=== PATIENT | male | born 1965 | race Caucasian/White ===

== ENCOUNTER 2017-11-12 10:23 | Inpatient (IN) | payer OTHER ==
[2017-11-12] VITALS (10 sets, daily range): BP systolic 117–207; BP diastolic 69–130; PULSE 50–68; RESP 16–22; TEMP 97.8–98.4; O2SAT 97–100
[~2017-11-12] VITALS: Ht 175.3 cm; Wt 93.0 kg
--- NOTE | 2017-11-12 10:40 | PD ---
HPI Chief Complaint: Chest Pain Time Seen by Provider: 10:29 Travel History International Travel<30 days: No Contact w/Intl Traveler<30days: No Traveled to known affect area: No History of Present Illness HPI 52-year-old male complains of chest pain. Patient states the pain started about 45 minutes prior to arrival. Patient states the pain is sharp pains abdominal pain radiation to the neck and both arms. Patient denies any coughing congestion fever chills. Patient denies any history of CAD. Patient has history hypertension, rheumatoid arthritis. Patient denies history of diabetes or hyperlipidemia. Patient is non-smoker. Patient denies family history of heart disease. On a scale from 1-10 the pain is an 8. PFSH Social History Tobacco Use: No Allergies-Medications (Allergen,Severity, Reaction): Coded Allergies: No Known Allergies (Unverified , 11/12/17) Reported Meds & Prescriptions Reported Meds & Active Scripts Active Reported Enalapril (Enalapril Maleate) 20 Mg Tab 20 Mg PO DAILY Metoprolol Tartrate 100 Mg Tab 100 Mg PO DAILY Enbrel PF Inj (Etanercept) 50 mg/ml Syr 50 Mg SQ Q7D Review of Systems General / Constitutional: No: Fever Eyes: No: Visual changes HENT: No: Headaches Cardiovascular: Positive: Chest Pain or Discomfort Respiratory: No: Shortness of Breath Gastrointestinal: No: Abdominal Pain Genitourinary: No: Dysuria Musculoskeletal: No: Pain Skin: No Rash Neurologic: No: Weakness Psychiatric: No: Depression Endocrine: No: Polydipsia Hematologic/Lymphatic: No: Easy Bruising Physical Exam Narrative GENERAL: Well-nourished, well-developed patient. SKIN: Focused skin assessment warm/dry. HEAD: Normocephalic. EYES: No scleral icterus. No injection or drainage. NECK: Supple, trachea midline. No JVD or lymphadenopathy. CARDIOVASCULAR: Regular rate and rhythm without murmurs, gallops, or rubs. RESPIRATORY: Breath sounds equal bilaterally. No accessory muscle use. GASTROINTESTINAL: Abdomen soft, non-tender, nondistended. MUSCULOSKELETAL: No cyanosis, or edema. BACK: Nontender without obvious deformity. No CVA tenderness. Neurologic exam normal. Data Data Last Documented VS Vital Signs Date Time Temp Pulse Resp B/P (MAP) Pulse Ox O2 Delivery O2 Flow Rate FiO2 11/12/17 11:50 57 203/129 4/2/18 11:40 18 98 Room Air 11/12/17 10:25 98.4 Orders Orders Aspirin (Aspirin) (11/12/17 10:45) Morphine Inj (Morphine Inj) (11/12/17 10:45) Ondansetron Inj (Zofran Inj) (11/12/17 10:45) Sodium Chlor 0.9% 1000 Ml Inj (Ns 1000 M (11/12/17 10:45) Electrocardiogram (11/12/17 10:37) Complete Blood Count With Diff (11/12/17 10:37) Comprehensive Metabolic Panel (11/12/17 10:37) Creatine Kinase (Cpk) (11/12/17 10:37) Troponin I (11/12/17 10:37) Prothrombin Time / Inr (Pt) (11/12/17 10:37) Act Partial Throm Time (Ptt) (11/12/17 10:37) Chest, Single Ap (11/12/17 10:37) Iv Access Insert/Monitor (11/12/17 10:37) Ecg Monitoring (11/12/17 10:37) Oximetry (11/12/17 10:37) Morphine Inj (Morphine Inj) (11/12/17 11:15) Cta Thor Abd Aorta W Iv C W3d (11/12/17 ) Iohexol 350 Inj (Omnipaque 350 Inj) (11/12/17 11:41) Nitroglycerin-D5w 50 Mg/250 Ml (Nitrogly (11/12/17 11:45) Nitroglycerin-D5w 50 Mg/250 Ml (Nitrogly (11/12/17 11:45) Admit Order (Ed Use Only) (11/12/17 11:55) Labs Laboratory Tests Test 11/12/17 10:40 White Blood Count 8.5 TH/MM3 Red Blood Count 4.54 MIL/MM3 Hemoglobin 14.1 GM/DL Hematocrit 41.9 % Mean Corpuscular Volume 92.2 FL Mean Corpuscular Hemoglobin 31.1 PG Mean Corpuscular Hemoglobin Concent 33.7 % Red Cell Distribution Width 12.3 % Platelet Count 339 TH/MM3 Mean Platelet Volume 7.8 FL Neutrophils (%) (Auto) 53.9 % Lymphocytes (%) (Auto) 31.0 % Monocytes (%) (Auto) 12.2 % Eosinophils (%) (Auto) 2.1 % Basophils (%) (Auto) 0.8 % Neutrophils # (Auto) 4.6 TH/MM3 Lymphocytes # (Auto) 2.6 TH/MM3 Monocytes # (Auto) 1.0 TH/MM3 Eosinophils # (Auto) 0.2 TH/MM3 Basophils # (Auto) 0.1 TH/MM3 CBC Comment DIFF FINAL Differential Comment Prothrombin Time 9.9 SEC Prothromb Time International Ratio 1.0 RATIO Activated Partial Thromboplast Time 23.3 SEC Blood Urea Nitrogen 27 MG/DL Creatinine 1.50 MG/DL Random Glucose 110 MG/DL Total Protein 8.7 GM/DL Albumin 4.3 GM/DL Calcium Level 9.6 MG/DL Alkaline Phosphatase 80 U/L Aspartate Amino Transf (AST/SGOT) 28 U/L Alanine Aminotransferase (ALT/SGPT) 44 U/L Total Bilirubin 1.0 MG/DL Sodium Level 135 MEQ/L Potassium Level 4.5 MEQ/L Chloride Level 104 MEQ/L Carbon Dioxide Level 22.5 MEQ/L Anion Gap 9 MEQ/L Estimat Glomerular Filtration Rate 50 ML/MIN Total Creatine Kinase 106 U/L Troponin I 0.10 NG/ML [facility] Medical Decision Making Medical Screen Exam Complete: Yes Emergency Medical Condition: Yes Interpretation(s) Chest x-ray shows no acute consolidation. EKG shows sinus rhythm with T-wave inversion in 3 aVF and anterior leads. CBC within normal limits. BUN 27. Creatinine 1.50. GFR 50. Troponin 0.10. Differential Diagnosis Differential diagnosis including musculoskeletal, angina, TN, PE, pneumothorax. Narrative Course 52-year-old male with chest pain. History of rheumatoid arthritis and hypertension. EKG shows inverted T-wave in 3, aVF, V1 V2 and V3. No obvious ST elevation or depression. No previous EKG for comparison. Aspirin 325 mg p.o. given. Morphine 2 mg IV given. Repeated morphine 2 mg IV. Nitroglycerin drip for blood pressure control. Diagnosis Primary Impression: NSTEMI (non-ST elevated myocardial infarction) Additional Impression: Renal insufficiency Admitting Information Admitting Physician Requests: Admit Isaac Mcnally MD Nov 12, 2017 10:40
[2017-11-12] MEDS ORDERED: MORPHINE SULFATE 2 MG/ML SYRINGE IV PUSH ONE ×3 (10:45→12:30)
[2017-11-12] MEDS ORDERED: ONDANSETRON HCL 4 MG/2 ML VIAL IV PUSH ONE (10:45)
[2017-11-12] MEDS ORDERED: SODIUM CHLOR 0.9% 1000 ML INJ 1,000 ML IV SCH ×2 (10:45→17:02)
[2017-11-12] MEDS ORDERED: ASPIRIN 325 MG TAB PO ONE (10:45)
[2017-11-12 10:53] LABS: AUTOMATED NEUTROPHIL # 4.6 TH/MM3 (1.8-7.7); BASOPHIL # 0.1 TH/MM3 (0-0.2); BASOPHIL % 0.8 % (0.0-2.0); EOSINOPHIL # 0.2 TH/MM3 (0-0.4); EOSINOPHIL % 2.1 % (0.0-4.0); HEMATOCRIT 41.9 % (39.0-51.0); HEMOGLOBIN 14.1 GM/DL (13.0-17.0); LYMPHOCYTE # 2.6 TH/MM3 (1.0-4.8); MEAN CELL VOLUME 92.2 FL (80.0-100.0); MEAN CORPUSCULAR HEMOGLOBIN 31.1 PG (27.0-34.0); MEAN CORPUSCULAR HGB CONC 33.7 % (32.0-36.0); MEAN PLATELET VOLUME 7.8 FL (7.0-11.0); MONO % 12.2 % (0.0-8.0); NEUT % 53.9 % (16.0-70.0); PLATELET COUNT 339 TH/MM3 (150-450); RED BLOOD COUNT 4.54 MIL/MM3 (4.50-5.90); RED CELL DISTRIBUTION WIDTH 12.3 % (11.6-17.2); WHITE BLOOD COUNT 8.5 TH/MM3 (4.0-11.0)
[2017-11-12] MEDS ORDERED: ENBR50IN2 SQ (10:54)
[2017-11-12] MEDS ORDERED: ENAL20TA PO (10:54)
[2017-11-12] MEDS ORDERED: METO100T PO (10:54)
[2017-11-12 11:10] LABS: CHLORIDE 104 MEQ/L (98-107); SODIUM (NA) 135 MEQ/L (136-145)
[2017-11-12 11:14] LABS: CALCIUM 9.6 MG/DL (8.5-10.1)
[2017-11-12 11:15] LABS: ALBUMIN 4.3 GM/DL (3.4-5.0); BICARBONATE 22.5 MEQ/L (21.0-32.0); BLOOD UREA NITROGEN 27 MG/DL (7-18); GLUCOSE,RANDOM 110 MG/DL (74-106)
[2017-11-12 11:18] LABS: ALT (GPT) 44 U/L (12-78); AST (GOT) 28 U/L (15-37); GLOMERULAR FILTRATION RATE 50 ML/MIN (>89)
[2017-11-12 11:20] LABS: TOTAL PROTEIN 8.7 GM/DL (6.4-8.2)
[2017-11-12 11:21] LABS: ALKALINE PHOSPHATASE 80 U/L (45-117)
[2017-11-12 11:32] LABS: PROTHROMBIN TIME - PATIENT 9.9 SEC (9.8-11.6)
--- NOTE | 2017-11-12 11:39 | RADRPT ---
EXAM DATE/TIME: 11/12/2017 11:14 [facility] COMPARISON: No previous studies available for comparison. INDICATIONS : Chest pain with numbness down right arm MEDICAL HISTORY : Hypertension. SURGICAL HISTORY : None. ENCOUNTER: Initial ACUITY: 1 day PAIN SCORE: 6/10 LOCATION: chest FINDINGS: A single view of the chest demonstrates the lungs to be symmetrically aerated without evidence of mas s, infiltrate or effusion. No evidence of pneumothorax. The cardiomediastinal contours are unremarka ble. Osseous structures are intact. CONCLUSION: The lungs are clear. Edvin Lomeli MD on November 12, 2017 at 11:37 Board Certified Radiologist. This report was verified electronically.
[2017-11-12] MEDS ORDERED: IOHEXOL 350 MG/ML 10 ML VIAL (for RAD DIAG) IVCONTRAST ONE (11:41)
[2017-11-12] MEDS ORDERED: NITROGLYCERIN-D5W 50 MG/250 ML 250 ML ONE (11:45)
[2017-11-12] MEDS: NITROGLYCERIN-D5W 50 MG/250 ML 250 ML IV PRN (11:50)
[2017-11-12] MEDS ORDERED: HEPARIN SODIUM - IV 10,000 UNITS/10 ML VIAL IV ONE (12:00)
[2017-11-12] MEDS: HEPARIN-D5W 25,000 U/250 ML 250 ML IV SCH (12:18)
--- NOTE | 2017-11-12 12:31 | RADRPT ---
EXAM DATE/TIME: 11/12/2017 11:26 [facility] COMPARISON: No previous studies available for comparison. INDICATIONS : Mid chest pain radiating up neck and down bilateral upper extremities. IV CONTRAST: 85 cc Omnipaque 350 (iohexol) IV RADIATION DOSE: 21.29 CTDIvol (mGy) MEDICAL HISTORY : Hypertension. Carcinoma, testicular. SURGICAL HISTORY : Left orchiectomy. ENCOUNTER: Initial ACUITY: 1 day PAIN SCALE: 9/10 LOCATION: chest TECHNIQUE: Volumetric scanning was performed using a multi-row detector CT scanner. The data was post processed with a variety of visualization algorithms including full volume maximum intensity projection, multi -planar sliding thin slab reformation, curved planar reformation, and surface rendering techniques. Using automated exposure control and adjustment of the mA and/or kV according to patient size, radiat ion dose was kept as low as reasonably achievable to obtain optimal diagnostic quality images. DICOM format image data is available electronically for review and comparison. FINDINGS: Thoracic aorta: There is a tricuspid aortic valve. The aortic root is normal in caliber measuring approximately 2.9 c m. The tubular portion of the ascending aorta is normal in size as well there is normal anatomic bran lorie of the great vessels from the arch. The arch and descending thoracic aorta are normal in calibe r. There is no evidence of dissection. Abdominal aorta: The celiac and SMA are widely patent. There are accessory renal arteries bilaterally. The renal arter ies are widely patent. The infrarenal aorta is normal in caliber. The YEHUDA is not identified. Pelvis: The common iliac, internal iliac and external iliac circulation demonstrates mild atherosclerotic july quing. No significant stenosis is identified. CT source data: There is moderate atherosclerotic plaquing involving the left anterior descending coronary artery. Th ere is no pericardial effusion. The heart is normal in size. The pulmonary parenchyma is clear area a nd the solid organs of the abdomen are grossly intact by arterial phase imaging. There is no retroper itoneal adenopathy. No free air or free fluid is identified. The visualized bony structures are gross ly intact. CONCLUSION: 1. No evidence of aortic dissection or aneurysmal dilation. 2. No pulmonary embolus identified. 3. Moderate atherosclerotic plaquing in the coronary arteries. 4. The solid organs of the abdomen are grossly intact. Caleb Montes MD on November 12, 2017 at 12:18 Board Certified Radiologist. This report was verified electronically.
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
[2017-11-12] MEDS ORDERED: MORPHINE SULFATE 4 MG/ML INJ IV PUSH PRN ×3 (17:00)
[2017-11-12] MEDS ORDERED: NALOXONE HCL 0.4 MG/ML AMP IV PUSH PRN (17:15)
[2017-11-12] MEDS ORDERED: ONDANSETRON HCL 4 MG/2 ML VIAL IVP PRN (17:15)
[2017-11-12] MEDS ORDERED: MAGNESIUM HYDROXIDE SUSP 30 ML CUP PO PRN (17:15)
[2017-11-12] MEDS ORDERED: ACETAMINOPHEN 325 MG TAB PO PRN (17:15)
[2017-11-12] MEDS ORDERED: SODIUM CHLORIDE 0.9% FLUSH 10 ML FLUSH IV FLUSH PRN (17:15)
[2017-11-12] MEDS: SODIUM CHLOR 0.9% 1000 ML INJ 1,000 ML IV SCH ×2 (17:45→20:30)
[2017-11-12] MEDS: SODIUM CHLORIDE 0.9% FLUSH 10 ML FLUSH IV FLUSH SCH (20:29)
[2017-11-12] MEDS: MORPHINE SULFATE 4 MG/ML INJ IV PUSH PRN (20:31)
[2017-11-12] MEDS: DOCUSATE SODIUM 50 MG/SENNA 8.6 MG TAB PO SCH (21:00)
[2017-11-12] MEDS: METOPROLOL TARTRATE 100 MG TAB PO SCH (21:00)
[2017-11-13] VITALS (25 sets, daily range): BP systolic 110–145; BP diastolic 68–90; PULSE 52–76; RESP 16–20; TEMP 97.6–98.9; O2SAT 94–98
[2017-11-13] MEDS: MORPHINE SULFATE 4 MG/ML INJ IV PUSH PRN ×2 (00:15→05:45)
[2017-11-13 01:58] LABS: ALBUMIN 3.4 GM/DL (3.4-5.0); ALT (GPT) 39 U/L (12-78); AST (GOT) 115 U/L (15-37); BICARBONATE 21.4 MEQ/L (21.0-32.0); BLOOD UREA NITROGEN 21 MG/DL (7-18); CALCIUM 8.2 MG/DL (8.5-10.1); CHLORIDE 105 MEQ/L (98-107); CHOLESTEROL 247 MG/DL (120-200); CREATININE 1.32 MG/DL (0.60-1.30); GLOMERULAR FILTRATION RATE 57 ML/MIN (>89); GLUCOSE,RANDOM 102 MG/DL (74-106); SODIUM (NA) 137 MEQ/L (136-145)
[2017-11-13 02:02] LABS: ALKALINE PHOSPHATASE 65 U/L (45-117); CHOLESTEROL/ HDL RATIO 7.94 RATIO; HDL CHOLESTEROL 31.1 MG/DL (40.0-60.0); TOTAL BILIRUBIN ADULT 0.8 MG/DL (0.2-1.0); TRIGLYCERIDES 625 MG/DL (42-150)
--- NOTE | 2017-11-13 06:48 | PD.CARD.PN ---
Subjective Subjective Remarks no significant change in symptoms. Troponin rise through the night. Objective Medications Current Medications Medications (Trade) Dose Ordered Sig/[place] Route Start Time Stop Time Status Last Admin Nitroglycerin/ Dextrose 250 ml @ 1.5 mls/hr TITRATE PRN IV 11/12/17 11:45 11/12/17 11:50 Heparin Sodium/ Dextrose 250 ml @ 10 mls/hr TITRATE IV 11/12/17 12:00 11/12/17 12:18 (Morphine Inj) 2 mg Q3H PRN IV PUSH 11/12/17 17:00 11/12/17 18:52 (NS Flush) 2 ml UNSCH PRN IV FLUSH 11/12/17 17:15 (NS Flush) 2 ml BID IV FLUSH 11/12/17 21:00 11/12/17 20:29 (Tylenol) 650 mg Q4H PRN PO 11/12/17 17:15 (Zofran Inj) 4 mg Q6H PRN IVP 11/12/17 17:15 (Narcan Inj) 0.4 mg UNSCH PRN IV PUSH 11/12/17 17:15 (Jenny-Colace) 1 tab BID PO 11/12/17 21:00 (Milk Of Magnesia Liq) 30 ml Q12H PRN PO 11/12/17 17:15 (Vasotec) 20 mg DAILY PO 11/13/17 09:00 Patient Own Medication PT OWN MED: Etanerc... Q7D SQ 11/13/17 09:00 Future Hold (Aspirin) 325 mg DAILY PO 11/13/17 09:00 (Lopressor) 100 mg BID PO 11/12/17 21:00 (Morphine Inj) 5 mg Q3H PRN IV PUSH 11/12/17 20:00 11/13/17 05:45 Sodium Chloride 1,000 ml @ 125 mls/hr Q8H IV 11/12/17 17:45 11/12/17 20:30 Vital Signs / I&O Vital Signs Date Time Temp Pulse Resp B/P (MAP) Pulse Ox O2 Delivery O2 Flow Rate FiO2 11/13/17 04:00 97.7 52 18 142/90 (107) 98 11/13/17 02:30 58 112/64 11/13/17 02:22 98 21 11/13/17 00:00 98.0 58 18 110/68 (82) 97 11/12/17 20:00 97.8 68 18 117/79 (92) 98 11/12/17 20:00 97.8 68 18 117/79 (92) 98 11/12/17 20:00 65 117/79 11/12/17 19:30 18 11/12/17 18:53 97.8 68 20 130/79 (96) 11/12/17 15:00 11/12/17 14:25 50 16 140/76 (97) 99 Nasal Cannula 2.00 11/12/17 14:03 56 16 132/72 (92) 97 Nasal Cannula 2.00 11/12/17 14:00 50 11/12/17 13:54 51 16 141/69 (93) 98 Nasal Cannula 2.00 11/12/17 13:44 56 16 148/88 (108) 99 Nasal Cannula 2.00 11/12/17 12:45 14 11/12/17 12:00 57 18 157/105 (122) 100 Nasal Cannula 2.00 11/12/17 12:00 100 Nasal Cannula 2.00 11/12/17 11:50 57 203/129 11/12/17 11:40 61 18 203/129 (153) 98 Room Air 11/12/17 11:20 14 11/12/17 10:45 97 Room Air 11/12/17 10:45 58 11/12/17 10:45 14 11/12/17 10:25 98.4 58 22 207/130 (155) 97 I/O 11/12/17 11/12/17 11/12/17 11/13/17 11/13/17 11/13/17 07:00 15:00 23:00 07:00 15:00 23:00 Intake Total 1000 ml 0 ml Output Total 1650 ml Balance 1000 ml -1650 ml Intake Oral 0 ml 0 ml IV Total 1000 ml Output Urine Total 1650 ml # Bowel Movements 0 Physical Exam Lungs clear RRR no murmur Laboratory Laboratory Tests Test 11/12/17 10:40 11/12/17 19:59 11/13/17 01:30 White Blood Count 8.5 TH/MM3 Red Blood Count 4.54 MIL/MM3 Hemoglobin 14.1 GM/DL Hematocrit 41.9 % Mean Corpuscular Volume 92.2 FL Mean Corpuscular Hemoglobin 31.1 PG Mean Corpuscular Hemoglobin Concent 33.7 % Red Cell Distribution Width 12.3 % Platelet Count 339 TH/MM3 Mean Platelet Volume 7.8 FL Neutrophils (%) (Auto) 53.9 % Lymphocytes (%) (Auto) 31.0 % Monocytes (%) (Auto) 12.2 % Eosinophils (%) (Auto) 2.1 % Basophils (%) (Auto) 0.8 % Neutrophils # (Auto) 4.6 TH/MM3 Lymphocytes # (Auto) 2.6 TH/MM3 Monocytes # (Auto) 1.0 TH/MM3 Eosinophils # (Auto) 0.2 TH/MM3 Basophils # (Auto) 0.1 TH/MM3 CBC Comment DIFF FINAL Differential Comment Prothrombin Time 9.9 SEC Prothromb Time International Ratio 1.0 RATIO Activated Partial Thromboplast Time 23.3 SEC 26.0 SEC 26.4 SEC Blood Urea Nitrogen 27 MG/DL 21 MG/DL Creatinine 1.50 MG/DL 1.32 MG/DL Random Glucose 110 MG/DL 102 MG/DL Total Protein 8.7 GM/DL 7.0 GM/DL Albumin 4.3 GM/DL 3.4 GM/DL Calcium Level 9.6 MG/DL 8.2 MG/DL Alkaline Phosphatase 80 U/L 65 U/L Aspartate Amino Transf (AST/SGOT) 28 U/L 115 U/L Alanine Aminotransferase (ALT/SGPT) 44 U/L 39 U/L Total Bilirubin 1.0 MG/DL 0.8 MG/DL Sodium Level 135 MEQ/L 137 MEQ/L Potassium Level 4.5 MEQ/L 3.9 MEQ/L Chloride Level 104 MEQ/L 105 MEQ/L Carbon Dioxide Level 22.5 MEQ/L 21.4 MEQ/L Anion Gap 9 MEQ/L 11 MEQ/L Estimat Glomerular Filtration Rate 50 ML/MIN 57 ML/MIN Total Creatine Kinase 106 U/L Troponin I 0.10 NG/ML 11.00 NG/ML 20.70 NG/ML Triglycerides Level 625 MG/DL Cholesterol Level 247 MG/DL LDL Cholesterol MG/DL HDL Cholesterol 31.1 MG/DL Cholesterol/HDL Ratio 7.94 RATIO Imaging Last 24 hours Impressions Chest X-Ray 11/12/17 1037 Signed Impressions: Service Date/Time: Sunday, November 12, 2017 11:14 - CONCLUSION: The lungs are clear. Edvin Lomeli MD Assessment and Plan Assessment and Plan NSTEMI will plan cath at 11.00. Discussed with patient Golden Flynn MD Nov 13, 2017 06:48
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
[2017-11-13] MEDS ORDERED: HYDROmorphone HCL PF 2 MG/ML VIAL IV PUSH ONE (08:00)
[2017-11-13] MEDS ORDERED: HYDROmorphone HCL PF 2 MG/ML VIAL IV PUSH PRN (08:00)
--- NOTE | 2017-11-13 08:15 | HHI.PR ---
Subjective Remarks still with chest pain Objective Vitals heart reg lung cta abd s/nt ext no edema Vital Signs Date Time Temp Pulse Resp B/P (MAP) Pulse Ox O2 Delivery O2 Flow Rate FiO2 11/13/17 08:07 71 18 141/90 (107) 11/13/17 04:00 97.7 52 18 142/90 (107) 98 11/13/17 04:00 60 147/96 11/13/17 02:30 58 112/64 11/13/17 02:22 98 21 11/13/17 00:00 98.0 58 18 110/68 (82) 97 11/12/17 20:00 97.8 68 18 117/79 (92) 98 11/12/17 20:00 97.8 68 18 117/79 (92) 98 11/12/17 20:00 65 117/79 11/12/17 19:30 18 11/12/17 18:53 97.8 68 20 130/79 (96) 11/12/17 15:00 11/12/17 14:25 50 16 140/76 (97) 99 Nasal Cannula 2.00 11/12/17 14:03 56 16 132/72 (92) 97 Nasal Cannula 2.00 11/12/17 14:00 50 11/12/17 13:54 51 16 141/69 (93) 98 Nasal Cannula 2.00 11/12/17 13:44 56 16 148/88 (108) 99 Nasal Cannula 2.00 11/12/17 12:45 14 11/12/17 12:00 57 18 157/105 (122) 100 Nasal Cannula 2.00 11/12/17 12:00 100 Nasal Cannula 2.00 11/12/17 11:50 57 203/129 11/12/17 11:40 61 18 203/129 (153) 98 Room Air 11/12/17 11:20 14 11/12/17 10:45 97 Room Air 11/12/17 10:45 58 11/12/17 10:45 14 11/12/17 10:25 98.4 58 22 207/130 (155) 97 Result Diagram: 11/12/17 1040 11/13/17 0130 Imaging Last Impressions Chest X-Ray 11/12/17 1037 Signed Impressions: Service Date/Time: Sunday, November 12, 2017 11:14 - CONCLUSION: The lungs are clear. Edvin Lomeli MD Aorta CTA 11/12/17 0000 Signed Impressions: Service Date/Time: Sunday, November 12, 2017 11:26 - CONCLUSION: 1. No evidence of aortic dissection or aneurysmal dilation. 2. No pulmonary embolus identified. 3. Moderate atherosclerotic plaquing in the coronary arteries. 4. The solid organs of the abdomen are grossly intact. Caleb Montes MD A/P Problem List: (1) NSTEMI (non-ST elevated myocardial infarction) ICD Codes: I21.4 - Non-ST elevation (NSTEMI) myocardial infarction Status: Acute Plan: Chest pain NSTEMI cont heparin gtt cont ntg gtt stop morphine. try dilaudid for pain add statin cont bb/flory/asa going for [facility] today at 11am Hypertensive Urgency BP 207/130 apon arrival cont ntg. flory. bb. Chronic kidney disease stage III In review of outpatient records GFR ranged from 28- 63 monitor avoid nephrotoxic agents cont ivf around [facility] Rheumatoid Arthritis continue patient's home Enbrel (2) Hypertensive urgency ICD Codes: I16.0 - Hypertensive urgency Status: Acute (3) Rheumatoid arthritis ICD Codes: M06.9 - Rheumatoid arthritis, unspecified Status: Chronic Ethan Babb MD Nov 13, 2017 08:15
[2017-11-13] MEDS: DOCUSATE SODIUM 50 MG/SENNA 8.6 MG TAB PO SCH ×2 (09:00→20:38)
[2017-11-13] MEDS ORDERED: METOPROLOL TARTRATE 100 MG TAB PO SCH (09:00)
[2017-11-13] MEDS ORDERED: ENALAPRIL MALEATE 10 MG TAB PO SCH (09:00)
[2017-11-13] MEDS ORDERED: ASPIRIN 325 MG TAB PO SCH (09:00)
[2017-11-13] MEDS ORDERED: ETANERCEPT 50 MG SQ SCH (09:00)
[2017-11-13] MEDS: SODIUM CHLORIDE 0.9% FLUSH 10 ML FLUSH IV FLUSH SCH ×3 (09:00→20:40)
[2017-11-13] MEDS: METOPROLOL TARTRATE 100 MG TAB PO SCH ×2 (09:06→20:38)
[2017-11-13] MEDS: HEPARIN-D5W 25,000 U/250 ML 250 ML IV SCH ×2 (09:20→09:21)
[2017-11-13] MEDS ORDERED: HEPARIN-NS/PF FLUSH BAG 2,000 ML IV FLUSH ONE (10:27)
[2017-11-13] MEDS ORDERED: MIDAZOLAM HCL 2 MG/2 ML VIAL ONE (10:42)
[2017-11-13] MEDS ORDERED: LIDOCAINE HCL 1% PF 30 ML VIAL ONE (10:51)
[2017-11-13] MEDS ORDERED: HEPARIN SODIUM - IV 10,000 UNITS/10 ML VIAL ONE (11:15)
--- NOTE | 2017-11-13 11:43 | CATHPROC ---
[employer] HIS Report Study Information Study Number Admission Scheduled Start Study Start [id number] Nov 12 2017 11:57AM 11/13/2017 Nov 13 2017 10:27AM [place] [facility] Cardiac Catheterization Admit Source Facility Department Other [facility] - [facility] Physician and Clinical Staff Initial Golden Downing Senior Policy Advisor Demario Fernández,RN Senior Policy Advisor Demario Patterson,RN Other cathlab, cathlab Recorder David Rice RCIS(BS) Scrub Pierre AbdallaRT(R) Procedures Performed Procedure Location (Site) Vessel Name Coronary Angiograms LCA Left Coronary Coronary Angiograms RCA Right Coronary L Heart Cath Wire insertion Fem Art (right) Femoral Art Equipment Time Lithoplate Maker Description Size Mfg Part Number Used/Scraped [id number] 11:17 [employer] WIRE, [place] PROWATER 180CM 180CM Used *[id number] TRANSDUCER, TRUWAVE [id number] 10:41 SolarNOW CHOU * Used W/STOCKCOCK *[id number] 11:26 mobiDEOS WIRE, CHOICE PT 182CM 182CM Used *[id number] [id number] *[id number] *[id number] *[id number] *[id number] [id number] *[id number] [id number] *[id number] 10:41 Verimatrix INDUSTRIES PACK, CCL CUSTOM * Used *[id number] 10:41 Verimatrix PACER PEN, SKIN DUAL W/ RULER * Used *[id number] 11:15 ITC 30 SURAJ INDEFLATOR Used *[id number] 10:41 ITC SHEATH, FR6.5 PRELUDE 11CM FR 6.5 038ACT Used *[id number] 10:41 ITC WIRE, 3MMJ .035 180CM 180CM Used *[id number] 10:41 NAMIC MANIFOLD, 4 PORT * Used *[id number] 10:41 NYCOMED OMNIPAQUE, 350 MG, 100ML 100ML [id number] Used [id number] 10:41 HAMEED MEDICAL BLANKET,WARM AIR CCL * Used *[id number] Equipment Model, Serial, Lot Number and Expiration Data Description Model Number Serial Number Lot Number Expiration Date WIRE, CHOICE PT 182CM [id number] 06-18-2019 History: Current Medications Medication Dosage/Unit Route Frequency Last Date/Time Taken Statins (any) Beta Carole ASA History: Allergies Allergy Reaction No Known Allergies History: Risk Factors Family History of Hypertension Dyslipidemia Previous DC Previous Heart Failure Premature CAD Yes Yes Yes No No Prior Valve Prior PCI Prior CABG Surgery No No No Cerebrovascular Peripheral Artery Chronic Lung On Dialysis Diabetes Disease Disease Disease No No No No No History: Symptoms/Diagnosis Selection Items Chest pain History: Stress Tests Stress or Imaging Studies Performed No History: Other Disease Selection Items HTN History: Other Current Smoker No Labs Hgb (g/dl) Hct (%) WBC (l/cumm) Platelets (thousands) 11.60-17.00 35.00-51.00 4.00-11.00 150.00-450.00 14.1 41.9 8.5 339 Glucose (mg/dl) BUN (mg/dl) Creatinine (mg/dl) BUN:Creatinine (1:x) 74.00-106.00 7.00-18.00 0.50-1.30 10.00-20.00 102 21 1.3 16.2 Na (meq/l) K (meq/l) 136.00-145.00 3.50-5.10 137 3.9 INR (PTT:PT) 0.90-1.10 1 Troponin I (ng/ml) CPK (u/l) CPK-MB (ng/ML) 0.02-0.05 26.00-308.00 0.50-3.60 20.7 106 Not Drawn Medication Medication Total Dose (Bolus/Oral) Medication Total Dosage/Unit 1% XYLOCAINE 20 mL HEPARIN 6600 units VERSED 2 mg Medications (Bolus/Oral) Medication Time Given Dosage/Unit Administered By Reason VERSED 11/13/2017 10:59:28 AM 2 mg Demario Frenández 2 mg VERSED given in lab by Demario Fernández RN in Left Antecubital via Peripheral IV. Ordered by Golden Gallegos ams. 1% XYLOCAINE 11/13/2017 11:04:42 AM 20 mL Golden Flynn 20 mL 1% XYLOCAINE given in lab by Golden Flynn in Right Groin via Subcutaneous. HEPARIN 11/13/2017 11:17:56 AM 6600 units Demario Patterson 6600 units HEPARIN given in lab by Demario Patterson RN in Left Antecubital via Peripheral IV. Ordered by Golden Flynn. Medication (Drip) Medication Time Given Dosage/Unit Concentration/Unit Diluent (ml) Solutio n IV Solutions 11/13/2017 10:49:00 AM 0 mL (IV) NaCl .9 Patient arrived on IV Solutions in Left Antecubital via Peripheral IV. Pump/Drip Flow = 125 ml/hr usi ng NaCl .9. NITROGLYCERIN DRIP 11/13/2017 10:48:24 AM 30 mcg/min 50 mg 250 D5W Patient arrived on 30 mcg/min NITROGLYCERIN DRIP in Left Antecubital via Peripheral IV. Pump/Drip Bora w = 9 ml/hr using D5W with a concentration of 50 mg in 250 ml. Initial Case Assessment Cardiovascular HR Rhythm NIBP Chest Pain 63 NSR 139/79 2 Edema Present Skin color Skin None Normal Warm Dry Circulatory - Right Pulses Dorsalis Pedis Femoral 3 1 Scale (0,1,2,3,4,d) Circulatory - Left Pulses Dorsalis Pedis Femoral 3 1 Scale (0,1,2,3,4,d) Neurological State Oriented to time-place- Alert Moves all extremities person Respiration - General Respiration Rate SpO2 (%) (B/min) 15 96 Final Case Assessment Cardiovascular HR Rhythm NIBP Chest Pain 73 NSR 125/74 2 Edema Present Skin color Skin None Normal Warm Dry Circulatory - Right Pulses Dorsalis Pedis Femoral 3 1 Scale (0,1,2,3,4,d) Circulatory - Left Pulses Dorsalis Pedis Femoral 3 1 Scale (0,1,2,3,4,d) Neurological State Oriented to time-place- Alert Moves all extremities person Respiration - General Respiration Rate SpO2 (%) (B/min) 16 96 Chronological Log Time Study Chronological Log 10:39:25 Patient arrived via Bed. Heparin drip DCed per MD. 10:39:26 Patient Name, D.O.B, / Armband Verified By R.N. 10:39:26 Consent signed by the physician and the patient and verified by the [employer] [facility] [facility] staff. 10:39:26 Pre-op and post- op instructions given; patient acknowledges understanding of instructions. 10:39:27 Verbal Stimulation=2 Physical Stimulation=2 Airway=2 Respiration=2 TOTAL=8. (0=absent, 1=li mited, 2=present) 10:39:28 Presedation assessment performed by [employer] [facility] RN. 10:39:29 Immediate Presedation assesment performed by physician. 10:39:29 Patient has been NPO for More than 6Hrs. 10:39:30 Heparin gtt discontinued prior to arrival 10:39:30 Skin Breakdown- none per patient 10:39:31 Patient Warmer Placed on the Table. 10:39:33 Bharat Prominences Protected 10:39:33 A # 20 IV was noted in the Antecubital (left). Grade = 0 10:39:34 History and physical on the chart or being dictated. 10:40:00 A # 20 IV was noted in the Forearm (right). Grade = 0 Assessment: Initial Case, HR=63 BPM, Rhythm=NSR, FGBG=685/79 mmhg, Chest Pain=2, Edema=None, Color=Normal, Skin = Warm, Dry Right Pulses: Amrik Ped=3, Femoral=1 10:43:42 Left Pulses: Amrik Ped=3, Femoral=1 Neurological: State=Alert, Ox3, WEST Respiration: Resp=15 B/min, SpO2=96 % Vitals capture started with the following parameters, Patient=Adult, Interval=5 min, Initial Pr tprozd=078 mmHg, 10:44:26 Deflation Rate=5 mmHg, Cuff placed on Right Arm 10:45:35 HR=64 bpm, FGDJ=881/79 mmhg, SpO2=99.0 %, Resp=11 B/min, Pain=2, Henry=10, Treadwell=2 Patient arrived on 30 mcg/min NITROGLYCERIN DRIP in Left Antecubital via Peripheral IV. Pump/Dr ip Flow = 9 ml/hr 10:48:24 using D5W with a concentration of 50 mg in 250 ml. 10:49:00 Patient arrived on IV Solutions in Left Antecubital via Peripheral IV. Pump/Drip Flow = 125 ml/hr using NaCl .9. 10:50:09 HR=62 bpm, MHFX=369/74 mmhg, SpO2=95.0 %, Resp=9 B/min, Pain=2, Henry=10, Treadwell=2 10:53:24 Bilateral groins prepped with 2% chlorhexidine, and draped after a 3 minute waiting time. 10:53:56 Reference ECG taken 10:55:19 paged 10:55:35 HR=62 bpm, HEPQ=141/78 mmhg, SpO2=96.0 %, Resp=10 B/min, Pain=2, Henry=10, Treadwell=2 10:57:39 Pressure channel 1 zeroed. 10:58:28 MD arrived. 10:58:35 Contrast Scanned 10:58:36 Immediate Presedation assesment performed by physician. 10:59:28 2 mg VERSED given in lab by Demario Fernández RN in Left Antecubital via Peripheral IV. Ordere d by Golden Flynn. 11:00:07 HR=63 bpm, RJNW=630/72 mmhg, SpO2=94.0 %, Resp=11 B/min, Pain=2, Henry=10, Treadwell=2 Time Out. Correct patient, correct procedure, correct physician, power injector not loaded with contrast with surgical 11:04:07 team present. Time Out Concurred by MD and individual staff in procedure. 11:04:36 Case Start 11:04:37 Verbal Stimulation=2 Physical Stimulation=2 Airway=2 Respiration=2 TOTAL=8. (0=absent, 1=li mited, 2=present) 11:04:42 20 mL 1% XYLOCAINE given in lab by Golden Flynn in Right Groin via Subcutaneous. 11:05:04 HR=63 bpm, EUVT=899/69 mmhg, SpO2=92.0 %, Resp=14 B/min, Pain=2, Henry=10, Treadwell=2 11:08:02 Access site was Right Femoral Artery. 11:08:06 A SHEATH, FR6.5 PRELUDE 11CM FR 6.5 was advanced into the Fem Art (right) using the Percuta neous technique. 11:08:22 Activated Clotting Time Drawn A JL 4.0 INFINITI CATHETER FR 6 was advanced over a wire. OMNIPAQUE, 350 MG, 100ML 100ML was us ed for 11:08:25 injections. Recorded Pressure: Ao, HR=64, Condition=Condition 1 11:09:44 (Aorta) Ao 104/73/89 11:10:05 HR=65 bpm, VREA=668/62 mmhg, SpO2=98.0 %, Resp=12 B/min, Pain=2, Henry=10, Treadwell=2 11:10:12 The LCA was injected and visualized at various angles. OMNIPAQUE, 350 MG, 100ML 100ML used . 11:11:25 ACT (Normal Range 90-180) = 113 11:11:34 Catheter was removed A JR 4.0 INFINITI CATHETER FR 6 was advanced over a wire. OMNIPAQUE, 350 MG, 100ML 100ML was us ed for 11:11:35 injections. 11:13:02 The RCA was injected and visualized at various angles. OMNIPAQUE, 350 MG, 100ML 100ML used . 11:15:06 HR=69 bpm, FQMZ=055/72 mmhg, SpO2=98.0 %, Resp=13 B/min, Pain=2, Henry=10, Treadwell=2 11:15:10 Catheter was removed A JR 4.0 GUIDE CATHETER FR 6 was advanced over a wire. OMNIPAQUE, 350 MG, 100ML 100ML was used for 11:16:41 injections. 11:17:56 6600 units HEPARIN given in lab by Demario Patterson RN in Left Antecubital via Peripheral IV. Ordered by Golden Flynn. 11:18:40 A WIRE, ASAHI PROWATER 180CM 180CM was inserted via Fem Art (right). 11:20:07 HR=68 bpm, GXRM=182/69 mmhg, SpO2=98.0 %, Resp=17 B/min, Pain=2, Henry=10, Treadwell=2 11:25:04 HR=60 bpm, GVYW=233/73 mmhg, SpO2=98.0 %, Resp=12 B/min, Pain=2, Henry=10, Treadwell=2 11:25:38 Wire removed 11:26:07 Catheter was removed A JR 4.0 GUIDE CATHETER FR 6 was advanced over a wire. OMNIPAQUE, 350 MG, 100ML 100ML was used for 11:27:45 injections. 11:28:21 A WIRE, CHOICE PT 182CM 182CM was inserted via Fem Art (right). 11:30:06 HR=61 bpm, AICW=696/59 mmhg, SpO2=98.0 %, Resp=12 B/min, Pain=2, Henry=10, Treadwell=2 11:32:25 ACT (Normal Range 90-180) = 218 11:35:05 HR=64 bpm, PJHD=625/74 mmhg, SpO2=98.0 %, Resp=15 B/min, Pain=2, Henry=10, Treadwell=2 11:35:45 Wire removed 11:35:48 Catheter was removed 11:36:18 Case End Assessment: Final Case, HR=73 BPM, Rhythm=NSR, GHZB=588/74 mmhg, Chest Pain=2, Edema=None, [place] r=Normal, Skin = Warm, Dry Right Pulses: Amrik Ped=3, Femoral=1 11:36:32 Left Pulses: Amrik Ped=3, Femoral=1 Neurological: State=Alert, Ox3, WEST Respiration: Resp=16 B/min, SpO2=96 % 11:37:11 Catheter(s) removed without difficulty 11:37:13 In the Fem Art (right) the SHEATH, FR6.5 PRELUDE 11CM FR 6.[address] by Golden Aranda ms. 11:37:19 Sterile dressing applied to site 11:37:19 No case complications noted. 11:37:20 Cine recording checked. 11:37:22 Bedside Report will be given. 11:37:25 Verbal Stimulation=2 Physical Stimulation=2 Airway=2 Respiration=2 TOTAL=8. (0=absent, 1=li mited, 2=present) 11:37:36 A Left Heart Cath was performed. 11:40:08 HR=65 bpm, PKYV=011/67 mmhg, SpO2=97.0 %, Resp=11 B/min, Pain=2, Henry=10, Treadwell=2 11:43:29 Vitals capture stopped. 11:43:30 Patient moved to the [facility] End Study - Contrast Media Used In Study Contrast Total Opened (mL) Total Used (mL) Total Wasted (mL) Omnipaque 110 110 0 End Study - Maximum Contrast Load Max Contrast Load (mL) 361.9 End Study - Radiation Exposure Fluoro Time (minutes) 13.7 End Study - Patient Disposition Complications Transferred To Interventional Outcome No Telemetry Bed unsuccessful
[2017-11-13] MEDS ORDERED: IOHEXOL 350 MG/ML 50 ML BTL (for Cath Lab) OTHER ONE (12:15)
[2017-11-13] MEDS ORDERED: IOHEXOL 350 MG/ML 100 ML BTL (for Cath Lab) OTHER ONE (12:15)
[2017-11-13] MEDS ORDERED: ATROPINE SULFATE 1 MG/ML VIAL IV PUSH PRN (13:30)
[2017-11-13] MEDS ORDERED: ONDANSETRON HCL 4 MG/2 ML VIAL IV PUSH PRN (13:30)
[2017-11-13] MEDS ORDERED: SODIUM CHLOR 0.9% 1000 ML INJ 1,000 ML IV SCH (13:30)
[2017-11-13] MEDS: SODIUM CHLOR 0.9% 1000 ML INJ 1,000 ML IV SCH ×3 (13:30→21:05)
[2017-11-13] MEDS ORDERED: SODIUM CHLOR 0.9% 250 ML INJ 250 ML IV PRN (14:00)
[2017-11-13] MEDS ORDERED: MISC INFORMATION XX ONE (14:00)
[2017-11-13] MEDS ORDERED: MORPHINE SULFATE 2 MG/ML SYRINGE IV PUSH PRN (14:00)
[2017-11-13] MEDS: NITROGLYCERIN-D5W 50 MG/250 ML 250 ML IV PRN (14:38)
[2017-11-13] MEDS ORDERED: ACETAMINOPHEN/HYDROcodone 325 MG/5 MG TAB PO PRN (15:30)
--- NOTE | 2017-11-13 16:17 | EKG ---
Date Performed: 11/12/2017 Time Performed: 10:27:38 PTAGE: 52 years EKG: SINUS BRADYCARDIA MODERATE ST DEPRESSION ABNORMAL ECG NO PREVIOUS TRACING DOCTOR: Ney Fontaine Interpretating Date/Time 11/13/2017 16:13:40
--- NOTE | 2017-11-13 16:35 | PD.CAR.PN ---
CVT Progress Note Subjective/Hospital Course: pt seen and evaluated pt scheduled for CABG x 2 on 11/15 sts discussed with pt RISK SCORES About the STS Risk Calculator Procedure: CAB Only Risk of Mortality: 0.353% Morbidity or Mortality: 7.438% Long Length of Stay: 1.685% Short Length of Stay: 74.344% Permanent Stroke: 0.273% Prolonged Ventilation: 4.436% DSW Infection: 0.205% Renal Failure: 1.473% Reoperation: 3.032% Objective: Vital Signs Date Time Temp Pulse Resp B/P (MAP) Pulse Ox O2 Delivery O2 Flow Rate FiO2 11/13/17 15:00 64 11/13/17 14:38 78 129/87 11/13/17 14:00 62 11/13/17 13:00 54 11/13/17 12:51 14 11/13/17 12:02 66 11/13/17 12:00 97.8 63 16 122/71 (88) 97 11/13/17 10:00 64 11/13/17 09:38 14 11/13/17 09:06 97 21 11/13/17 09:00 68 11/13/17 08:08 97.6 11/13/17 08:07 71 18 141/90 (107) 11/13/17 08:00 76 11/13/17 07:00 58 11/13/17 04:00 97.7 52 18 142/90 (107) 98 11/13/17 04:00 60 147/96 11/13/17 02:30 58 112/64 11/13/17 02:22 98 21 11/13/17 00:00 98.0 58 18 110/68 (82) 97 11/12/17 20:00 97.8 68 18 117/79 (92) 98 11/12/17 20:00 97.8 68 18 117/79 (92) 98 11/12/17 20:00 65 117/79 11/12/17 19:30 18 11/12/17 18:53 97.8 68 20 130/79 (96) Labs: Laboratory Tests Test 11/13/17 07:39 11/13/17 12:29 Activated Partial Thromboplast Time 26.2 SEC (24.3-30.1) Troponin I 26.90 NG/ML (0.02-0.05) Result Diagram: 11/12/17 1040 11/13/17 0130 Aure Lee [facility] Nov 13, 2017 16:35
[2017-11-13] MEDS ORDERED: SODIUM CHLORIDE 0.9% FLUSH 10 ML FLUSH IV FLUSH PRN (16:45)
[2017-11-13] MEDS ORDERED: PAPAVERINE INJ 60 MG, NITROGLYCERIN INJ 100 MCG, DILTIAZEM INJ 100 MG in SODIUM CHLORID... IRRIGATION SCH (16:45)
[2017-11-13] MEDS ORDERED: METOPROLOL TARTRATE 25 MG TAB PO SCH (16:45)
[2017-11-13] MEDS ORDERED: ceFAZolin 2 GM PREMIX 50 ML IV SCH (16:45)
[2017-11-13] MEDS ORDERED: CEFAZOLIN INJ 500 MG in SODIUM CHLORIDE 0.9% IRR BTL 500 ML IRRIGATION SCH (16:45)
[2017-11-13] MEDS ORDERED: DEXTROSE 50% IN WATER 50 ML VIAL(D50) IV PUSH PRN (16:45)
[2017-11-13] MEDS ORDERED: CHLORHEXIDINE GLUCONATE 4% SOLN 120 ML BTL TOPICAL SCH (16:45)
[2017-11-13] MEDS ORDERED: INSULIN REGULAR (IV INFUSION) 100 UNITS in SODIUM CHLORIDE 0.9% INJ 99 ML IV PRN (16:45)
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
--- NOTE | 2017-11-13 17:13 | EKG ---
Date Performed: 11/12/2017 Time Performed: 21:07:18 PTAGE: 52 years EKG: Sinus bradycardia Septal and lateral ST-T changes may be due to myocardial ischemia Since p revious tracing, no significant change noted Abnormal ECG PREVIOUS TRACING : 11/12/2017 10.27.38 DOCTOR: Ney Fontaine Interpretating Date/Time 11/13/2017 17:12:05
--- NOTE | 2017-11-13 17:13 | EKG ---
Date Performed: 11/13/2017 Time Performed: 02:04:02 PTAGE: 52 years EKG: Sinus bradycardia Septal and lateral ST-T changes may be due to myocardial ischemia Since p revious tracing, no significant change noted Abnormal ECG PREVIOUS TRACING : 11/12/2017 21.07.18 DOCTOR: Ney Fontaine Interpretating Date/Time 11/13/2017 17:13:04
--- NOTE | 2017-11-13 17:18 | ECHRPT ---
Indication: chest pain CONCLUSIONS The left ventricular systolic function is normal with an estimated ejection fraction in the range of 60-65%. The right ventricle is mildly dilated. There is trace tricuspid valve regurgitation. BP: 141 / 90 HR: 64 Rhythm: Sinus MEASUREMENTS (Male / Female) Normal Values Technical Quality:Fair 2D ECHO LV Diastolic Diameter PLAX 4.9 cm 4.2 - 5.9 / 3.9 - 5.3 cm LV Systolic Diameter PLAX 3.2 cm IVS Diastolic Thickness 1.1 cm 0.6 - 1.0 / 0.6 - 0.9 cm LVPW Diastolic Thickness 1.1 cm 0.6 - 1.0 / 0.6 - 0.9 cm LV Relative Wall Thickness 0.4 RV Internal Dim ED PLAX 2.6 cm LVOT Diameter 2.1 cm LA Systolic Diameter LX 3.2 cm 3.0 - 4.0 / 2.7 - 3.8 cm LV Ejection Fraction MOD 4C 67.6 % LV Cardiac Index MOD 4C 2720.9 cm/minm LV Ejection Fraction 4C AL 70.7 % LV Cardiac Index 4C AL 2969.6 cm/minm DOPPLER MV Area PHT 3.3 cm Mitral E Point Velocity 73.5 cm/s Mitral A Point Velocity 64.7 cm/s Mitral E to A Ratio 1.1 LV E' Lateral Velocity 8.8 cm/s Mitral E to LV E' Lateral Ratio 8.4 LV E' Septal Velocity 8.5 cm/s Mitral E to LV E' Septal Ratio 8.7 TR Peak Velocity 270.0 cm/s TR Peak Gradient 29.2 mmHg Right Atrial Pressure 10.0 mmHg Pulmonary Artery Systolic Pressu 39.2 mmHg Right Ventricular Systolic Press 39.2 mmHg PV Peak Velocity 84.2 cm/s PV Peak Gradient 2.8 mmHg FINDINGS LEFT VENTRICLE The left ventricular systolic function is normal with an estimated ejection fraction in the range of 60-65%. Normal left ventricular size. Wall thickness is normal. No regional wall motion abnormalities are present. RIGHT VENTRICLE The right ventricle is mildly dilated. The right ventricular systoilc function is normal. LEFT ATRIUM The left atrial size is normal. RIGHT ATRIUM The right atrial size is normal. ATRIAL SEPTUM Normal atrial septal thickness AORTA The aortic root and proximal ascending aorta are normal in size on limited imaging. MITRAL VALVE Structurally normal mitral valve. No mitral valve stenosis or regurgitation. AORTIC VALVE Trileaflet aortic valve. No aortic valve stenosis or regurgitation. TRICUSPID VALVE Structurally normal tricuspid valve. There is trace tricuspid valve regurgitation. The estimated pulmonary arterial pressure is 39 mmHg. PULMONARY VALVE The pulmonary valve is not well visualized. VESSELS The inferior vena cava is normal in size. PERICARDIUM No pericardial effusion. Santiago Bowers DO (Electronically Signed) Final Date:13 November 2017 17:17
[2017-11-13] MEDS: HYDROmorphone HCL PF 2 MG/ML VIAL IV PUSH PRN ×2 (17:39→20:41)
[2017-11-13] MEDS: ACETAMINOPHEN/HYDROcodone 325 MG/5 MG TAB PO PRN ×2 (18:59→22:56)
[2017-11-13] MEDS: ATORVASTATIN 40 MG TAB PO SCH (20:38)
[2017-11-13] MEDS ORDERED: ATORVASTATIN 10 MG TAB PO SCH (21:00)
--- NOTE | 2017-11-13 21:20 | RADRPT ---
EXAM DATE/TIME: 11/13/2017 20:02 [facility] COMPARISON: No previous studies available for comparison. INDICATIONS : PreOp cardiac surgery. MEDICAL HISTORY : Hypertension. Rheumatoid arthritis. Carcinoma, testicular. Dyspnea. SURGICAL HISTORY : Exploratory lap. Testicle removed. ENCOUNTER: Initial ACUITY: 1 day PAIN SCORE: 0/10 LOCATION: Bilateral neck PEAK SYSTOLIC VELOCITIES (cm/sec): ICA/CCA RATIO: Right: 0.7 Left: 0.6 ICA: Right: 73.2 Left: 68.8 CCA: Right: 101.1 Left: 112.4 ECA: Right: 94.6 Left: 109.2 VERTEBRAL: Right: 46.8 antegrade Left: 59.0 antegrade Elevated flow velocities and ICA/CCA ratios have been found to correlate with increased degrees of vessel stenosis, calculated as percentage of diameter relative to a normal segment of distal ICA/CCA FINDINGS: RIGHT CAROTID: No significant stenosis is visualized. The waveforms are within normal limits. LEFT CAROTID: No significant stenosis is visualized. The waveforms are within normal limits. VERTEBRAL ARTERIES: Antegrade flow is seen in both vertebral arteries. MISCELLANEOUS: None. CONCLUSION: 1. Minimal carotid plaque bilaterally. No hemodynamically significant stenosis. Vertebral artery flow antegrade. Alexys Chavez MD on November 13, 2017 at 21:18 Board Certified Radiologist. This report was verified electronically.
--- NOTE | 2017-11-13 21:31 | RADRPT ---
EXAM DATE/TIME: 11/13/2017 20:14 [facility] COMPARISON: No previous studies available for comparison. INDICATIONS : PreOp cardiac surgery. MEDICAL HISTORY : Rheumatoid arthritis. Hypertension. Carcinoma, testicular. Dyspnea. SURGICAL HISTORY : Exploratory lap. Testicle removed. ENCOUNTER: Initial ACUITY: 1 day PAIN SCORE: 0/10 LOCATION: Bilateral legs. TECHNIQUE: Venous ultrasound of the left and right leg was performed from the inguinal ligament to the proximal calf. Real-time, color Doppler and spectral tracing, compression and augmentation techniques were us ed. FINDINGS: RIGHT LEG: There is normal compressibility of the deep venous system from the inguinal region to the proximal ca lf. No echogenic clot is seen in the lumen of the common femoral, femoral, popliteal, and posterior tibial veins. There is a normal response of the venous system to proximal and distal augmentation an d respiration. LEFT LEG: There is normal compressibility of the deep venous system from the inguinal region to the proximal ca lf. No echogenic clot is seen in the lumen of the common femoral, femoral, popliteal, and posterior tibial veins. There is a normal response of the venous system to proximal and distal augmentation an d respiration. CONCLUSION: 1. Negative for deep venous thrombosis. Alexys Chavez MD on November 13, 2017 at 21:28 Board Certified Radiologist. This report was verified electronically.
--- NOTE | 2017-11-13 21:31 | RADRPT ---
EXAM DATE/TIME: 11/13/2017 20:21 [facility] COMPARISON: No previous studies available for comparison. INDICATIONS : PreOp cardiac surgery. MEDICAL HISTORY : Rheumatoid arthritis. Carcinoma, testicular. Hypertension. Dyspnea. SURGICAL HISTORY : Exploratory lap. Testicle removed. ENCOUNTER: Initial ACUITY: 1 day PAIN SCORE: 0/10 LOCATION: Bilateral legs. GREATER SAPHENOUS VEIN THIGH: PROXIMAL: Right 6 mm Left 7 mm MID: Right 5 mm Left 3 mm DISTAL: Right 4 mm Left 4 mm CALF: PROXIMAL: Right 2 mm Left 3 mm MID: Right 2 mm Left 2 mm DISTAL: Right 2 mm Left 2 mm FINDINGS: The venous system of the lower extremities are patent by color Doppler imaging. Measurements of the leg veins (in mm) are listed above. CONCLUSION: Normal examination. Alexys Chavez MD on November 13, 2017 at 21:29 Board Certified Radiologist. This report was verified electronically.
[2017-11-13 23:33] LABS: BILIRUBIN, URINE NEG (NEG); BLOOD, URINE NEG (NEG); GLUCOSE,URINE NEG (NEG); KETONE, URINE NEG (NEG); MUCUS URINE FEW /lpf (OCC); NITRITE,URINE NEG (NEG); PH, URINE 5.5 (5.0-8.5); URINE COLOR LIGHT-YELLOW (YELLW/STRAW); URINE LEUKOCYTE ESTERASE NEG (NEG)
[2017-11-14] VITALS (22 sets, daily range): BP systolic 105–142; BP diastolic 61–83; PULSE 60–90; RESP 14–20; TEMP 98.4–102.3; O2SAT 94–98
[2017-11-14] MEDS: HYDROmorphone HCL PF 2 MG/ML VIAL IV PUSH PRN ×3 (01:12→08:49)
[2017-11-14] MEDS: SODIUM CHLOR 0.9% 1000 ML INJ 1,000 ML IV SCH ×2 (01:45→07:35)
[2017-11-14] MEDS: ACETAMINOPHEN/HYDROcodone 325 MG/5 MG TAB PO PRN ×4 (03:24→20:48)
[2017-11-14 04:59] LABS: AUTOMATED NEUTROPHIL # 6.1 TH/MM3 (1.8-7.7); BASOPHIL # 0.1 TH/MM3 (0-0.2); BASOPHIL % 0.9 % (0.0-2.0); EOSINOPHIL # 0.1 TH/MM3 (0-0.4); EOSINOPHIL % 1.1 % (0.0-4.0); HEMATOCRIT 32.2 % (39.0-51.0); HEMOGLOBIN 11.2 GM/DL (13.0-17.0); LYMPH % 13.6 % (9.0-44.0); LYMPHOCYTE # 1.2 TH/MM3 (1.0-4.8); MEAN CELL VOLUME 93.7 FL (80.0-100.0); MEAN CORPUSCULAR HEMOGLOBIN 32.6 PG (27.0-34.0); MEAN CORPUSCULAR HGB CONC 34.8 % (32.0-36.0); MEAN PLATELET VOLUME 7.6 FL (7.0-11.0); MONO % 13.2 % (0.0-8.0); MONOCYTE # 1.1 TH/MM3 (0-0.9); NEUT % 71.2 % (16.0-70.0); PLATELET COUNT 229 TH/MM3 (150-450); RED BLOOD COUNT 3.43 MIL/MM3 (4.50-5.90); RED CELL DISTRIBUTION WIDTH 13.1 % (11.6-17.2); WHITE BLOOD COUNT 8.6 TH/MM3 (4.0-11.0)
[2017-11-14 05:11] LABS: BICARBONATE 23.2 MEQ/L (21.0-32.0); BLOOD UREA NITROGEN 13 MG/DL (7-18); CALCIUM 8.5 MG/DL (8.5-10.1); CHLORIDE 108 MEQ/L (98-107); CREATININE 1.26 MG/DL (0.60-1.30); GLOMERULAR FILTRATION RATE 61 ML/MIN (>89); GLUCOSE,RANDOM 98 MG/DL (74-106); SODIUM (NA) 138 MEQ/L (136-145)
--- NOTE | 2017-11-14 07:37 | PD.CARD.PN ---
Subjective Subjective Remarks Continues to have chest discomfort, reports unchanged throughout admission. No dyspnea at rest, reports shortness of breath when he exerts himself at all. No palpitations. No issues with groin access site. Telemetry showed 3 beats NSVT overnight. Objective Medications Current Medications Medications (Trade) Dose Ordered Sig/[place] Route Start Time Stop Time Status Last Admin Nitroglycerin/ Dextrose 250 ml @ 1.5 mls/hr TITRATE PRN IV 11/12/17 11:45 11/13/17 14:38 (NS Flush) 2 ml UNSCH PRN IV FLUSH 11/12/17 17:15 (NS Flush) 2 ml BID IV FLUSH 11/12/17 21:00 11/13/17 20:39 (Tylenol) 650 mg Q4H PRN PO 11/12/17 17:15 (Narcan Inj) 0.4 mg UNSCH PRN IV PUSH 11/12/17 17:15 (Jenny-Colace) 1 tab BID PO 11/12/17 21:00 11/13/17 20:38 (Milk Of Magnesia Liq) 30 ml Q12H PRN PO 11/12/17 17:15 (Vasotec) 20 mg DAILY PO 11/13/17 09:00 Future Hold 11/13/17 09:06 Patient Own Medication PT OWN MED: Etanerc... Q7D SQ 11/13/17 09:00 Future Hold (Lopressor) 100 mg BID PO 11/12/17 21:00 11/13/17 20:38 Sodium Chloride 1,000 ml @ 125 mls/hr Q8H IV 11/12/17 17:45 11/13/17 21:00 (Lipitor) 40 mg HS PO 11/13/17 21:00 11/13/17 20:38 (Morphine Inj) 2 mg Q30M PRN IV PUSH 11/13/17 14:00 (Aspirin Chew) 81 mg DAILY PO 11/14/17 09:00 (Atropine Inj) 0.5 mg UNSCH PRN IV PUSH 11/13/17 13:30 Sodium Chloride 250 ml @ 500 mls/hr ONCE PRN IV 11/13/17 14:00 11/14/17 13:59 (Zofran Inj) 4 mg Q4H PRN IV PUSH 11/13/17 13:30 ([place] 5-325 Mg) 1 tab Q4H PRN PO 11/13/17 15:30 ([place] 5-325 Mg) 2 tab Q4H PRN PO 11/13/17 15:30 11/14/17 03:24 (Dilaudid Pf Inj) 1 mg Q3H PRN IV PUSH 11/13/17 16:30 11/14/17 04:57 (NS Flush) 2 ml BID IV FLUSH 11/13/17 21:00 (NS Flush) 2 ml UNSCH PRN IV FLUSH 11/13/17 16:45 Papaverine HCl 60 mg/Nitroglycerin 100 mcg/Diltiazem HCl 100 mg/Sodium Chloride 100 ml @ 0 mls/hr AMORTIZATION CLERK IRRIGATION 11/13/17 16:45 11/20/17 16:44 Cefazolin Sodium 500 mg/Sodium Chloride 505 ml @ 0 mls/hr AMORTIZATION CLERK IRRIGATION 11/13/17 16:45 11/20/17 16:44 (Lopressor) 12.5 mg AMORTIZATION CLERK PO 11/13/17 16:45 11/20/17 16:44 (Hibiclens 4% Top Soln) 1 applic AMORTIZATION CLERK TOPICAL 11/13/17 16:45 11/20/17 16:44 Insulin Human Regular 100 units/ Sodium Chloride 100 ml @ 3 mls/hr TITRATE PRN IV 11/13/17 16:45 11/20/17 16:44 (D50w (Vial) Inj) 50 ml UNSCH PRN IV PUSH 11/13/17 16:45 Vital Signs / I&O Vital Signs Date Time Temp Pulse Resp B/P (MAP) Pulse Ox O2 Delivery O2 Flow Rate FiO2 11/14/17 06:13 65 11/14/17 05:49 18 11/14/17 05:00 74 11/14/17 04:39 18 11/14/17 04:00 72 11/14/17 03:00 98.4 65 105/64 (78) 96 11/14/17 03:00 61 11/14/17 02:40 60 11/14/17 01:02 78 11/14/17 00:00 65 11/13/17 23:00 98.6 70 19 145/85 (105) 94 11/13/17 23:00 70 11/13/17 22:00 68 11/13/17 21:36 94 11/13/17 21:00 76 11/13/17 20:35 98.9 76 20 128/83 (98) 98 11/13/17 20:00 72 11/13/17 19:00 70 11/13/17 18:01 65 11/13/17 17:00 62 11/13/17 16:00 60 11/13/17 15:00 64 11/13/17 15:00 98.0 64 16 128/84 (99) 98 11/13/17 14:38 78 129/87 11/13/17 14:00 62 11/13/17 13:00 54 11/13/17 12:51 14 11/13/17 12:02 66 11/13/17 12:00 97.8 63 16 122/71 (88) 97 11/13/17 10:00 64 11/13/17 09:38 14 11/13/17 09:06 97 21 11/13/17 09:00 68 11/13/17 08:08 97.6 11/13/17 08:07 71 18 141/90 (107) 11/13/17 08:00 76 I/O 11/13/17 11/13/17 11/13/17 11/14/17 11/14/17 11/14/17 07:00 15:00 23:00 07:00 15:00 23:00 Intake Total 0 ml 1000 ml 1420 ml 1181 ml Output Total 1650 ml 550 ml 350 ml Balance -1650 ml 1000 ml 870 ml 831 ml Intake Oral 0 ml 420 ml IV Total 1000 ml 1000 ml 1181 ml Output Urine Total 1650 ml 550 ml 350 ml # Bowel Movements 0 Physical Exam GENERAL: Well-developed well-nourished. In no acute distress. NECK: No carotid bruits. No JVD. CARDIOVASCULAR: Regular rate and rhythm. No murmur appreciated. RESPIRATORY: No accessory muscle use. Clear to auscultation. Breath sounds equal bilaterally. MUSCULOSKELETAL: No clubbing or cyanosis. No edema. NEUROLOGICAL: Awake and alert. Normal speech. SKIN: Right groin access site with no tenderness or ecchymosis Laboratory Laboratory Tests Test 11/13/17 07:39 11/13/17 12:29 11/13/17 22:44 11/13/17 22:52 Activated Partial Thromboplast Time 26.2 SEC Troponin I 26.90 NG/ML Urine Color LIGHT-YELLOW Urine Turbidity CLEAR Urine pH 5.5 Urine Specific [place] 1.039 Urine Protein NEG mg/dL Urine Glucose (UA) NEG mg/dL Urine Ketones NEG mg/dL Urine Occult Blood NEG Urine Nitrite NEG Urine Bilirubin NEG Urine Urobilinogen LESS THAN 2.0 MG/DL Urine Leukocyte Esterase NEG Urine WBC LESS THAN 1 /hpf Urine Mucus FEW /lpf Microscopic Urinalysis Comment CULT NOT INDICATED Urine Opiates Screen POS Urine Barbiturates Screen NEG Urine Amphetamines Screen NEG Urine Benzodiazepines Screen POS Urine Cocaine Screen NEG Urine Cannabinoids Screen NEG Nasal Screen MRSA (PCR) MRSA NOT DETECTED Test 11/14/17 04:47 White Blood Count 8.6 TH/MM3 Red Blood Count 3.43 MIL/MM3 Hemoglobin 11.2 GM/DL Hematocrit 32.2 % Mean Corpuscular Volume 93.7 FL Mean Corpuscular Hemoglobin 32.6 PG Mean Corpuscular Hemoglobin Concent 34.8 % Red Cell Distribution Width 13.1 % Platelet Count 229 TH/MM3 Mean Platelet Volume 7.6 FL Neutrophils (%) (Auto) 71.2 % Lymphocytes (%) (Auto) 13.6 % Monocytes (%) (Auto) 13.2 % Eosinophils (%) (Auto) 1.1 % Basophils (%) (Auto) 0.9 % Neutrophils # (Auto) 6.1 TH/MM3 Lymphocytes # (Auto) 1.2 TH/MM3 Monocytes # (Auto) 1.1 TH/MM3 Eosinophils # (Auto) 0.1 TH/MM3 Basophils # (Auto) 0.1 TH/MM3 CBC Comment DIFF FINAL Differential Comment Blood Urea Nitrogen 13 MG/DL Creatinine 1.26 MG/DL Random Glucose 98 MG/DL Calcium Level 8.5 MG/DL Sodium Level 138 MEQ/L Potassium Level 4.1 MEQ/L Chloride Level 108 MEQ/L Carbon Dioxide Level 23.2 MEQ/L Anion Gap 7 MEQ/L Estimat Glomerular Filtration Rate 61 ML/MIN Imaging Last Impressions Lower Extremity Ultrasound 11/13/17 0000 Signed Impressions: Service Date/Time: Monday, November 13, 2017 20:21 - CONCLUSION: Normal examination. Alexys Chavez MD Carotid Artery Ultrasound 11/13/17 0000 Signed Impressions: Service Date/Time: Monday, November 13, 2017 20:02 - CONCLUSION: 1. Minimal carotid plaque bilaterally. No hemodynamically significant stenosis. Vertebral artery flow antegrade. Alexys Chavez MD Chest X-Ray 11/12/17 1037 Signed Impressions: Service Date/Time: Sunday, November 12, 2017 11:14 - CONCLUSION: The lungs are clear. Edvin Lomeli MD Aorta CTA 11/12/17 0000 Signed Impressions: Service Date/Time: Sunday, November 12, 2017 11:26 - CONCLUSION: 1. No evidence of aortic dissection or aneurysmal dilation. 2. No pulmonary embolus identified. 3. Moderate atherosclerotic plaquing in the coronary arteries. 4. The solid organs of the abdomen are grossly intact. Caleb Montes MD Assessment and Plan Assessment and Plan 52-year-old male with past medical history of hypertension who presented with NSTEMI CAD: 11/13 showed occluded proximal LAD and RCA. Cardiothoracic surgery consulted and planning on CABG tomorrow. On nitro GTT. Continue aspirin, statin , beta-simon. Clifford Burt Nov 14, 2017 07:37
--- NOTE | 2017-11-14 08:08 | HHI.PR ---
Subjective Remarks doing ok. still with some pain relieved with dilaudid Objective Vitals heart reg lung cta abd s/nt ext no edema Vital Signs Date Time Temp Pulse Resp B/P (MAP) Pulse Ox O2 Delivery O2 Flow Rate FiO2 11/14/17 07:00 84 20 142/83 (102) 96 11/14/17 07:00 62 11/14/17 06:13 65 11/14/17 05:49 18 11/14/17 05:00 74 11/14/17 04:39 18 11/14/17 04:00 72 11/14/17 03:00 98.4 65 105/64 (78) 96 11/14/17 03:00 61 11/14/17 02:40 60 11/14/17 01:02 78 11/14/17 00:00 65 11/13/17 23:00 98.6 70 19 145/85 (105) 94 11/13/17 23:00 70 11/13/17 22:00 68 11/13/17 21:36 94 11/13/17 21:00 76 11/13/17 20:35 98.9 76 20 128/83 (98) 98 11/13/17 20:00 72 11/13/17 19:00 70 11/13/17 18:01 65 11/13/17 17:00 62 11/13/17 16:00 60 11/13/17 15:00 64 11/13/17 15:00 98.0 64 16 128/84 (99) 98 11/13/17 14:38 78 129/87 11/13/17 14:00 62 11/13/17 13:00 54 11/13/17 12:51 14 11/13/17 12:02 66 11/13/17 12:00 97.8 63 16 122/71 (88) 97 11/13/17 10:00 64 11/13/17 09:38 14 11/13/17 09:06 97 21 11/13/17 09:00 68 11/13/17 08:08 97.6 11/14/17 11/14/17 11/15/17 15:00 23:00 07:00 Intake Total 170 ml Balance 170 ml IV Total 170 ml Result Diagram: 11/14/17 0447 11/14/17 0447 Imaging Last Impressions Chest X-Ray 11/12/17 1037 Signed Impressions: Service Date/Time: Sunday, November 12, 2017 11:14 - CONCLUSION: The lungs are clear. Edvin Lomeli MD Aorta CTA 11/12/17 0000 Signed Impressions: Service Date/Time: Sunday, November 12, 2017 11:26 - CONCLUSION: 1. No evidence of aortic dissection or aneurysmal dilation. 2. No pulmonary embolus identified. 3. Moderate atherosclerotic plaquing in the coronary arteries. 4. The solid organs of the abdomen are grossly intact. Caleb Montes MD A/P Problem List: (1) NSTEMI (non-ST elevated myocardial infarction) ICD Codes: I21.4 - Non-ST elevation (NSTEMI) myocardial infarction Status: Acute Plan: Chest pain NSTEMI 2d echo: 11/13: The left ventricular systolic function is normal with an estimated ejection fraction in the range of 60-65%. The right ventricle is mildly dilated. There is trace tricuspid valve regurgitation. LHC 11/13: Occluded LAD and RCA cont ntg gtt prn dilaudid cont statin/bb/asa Going for CABG tomorrow. Hypertensive Urgency BP 207/130 apon arrival cont ntg. bb. Chronic kidney disease stage III In review of outpatient records GFR ranged from 28- 63 monitor avoid nephrotoxic agents Rheumatoid Arthritis continue patient's home Enbrel (2) Hypertensive urgency ICD Codes: I16.0 - Hypertensive urgency Status: Acute (3) Rheumatoid arthritis ICD Codes: M06.9 - Rheumatoid arthritis, unspecified Status: Chronic Ethan Babb MD Nov 14, 2017 08:08
[2017-11-14] MEDS: METOPROLOL TARTRATE 100 MG TAB PO SCH (08:49)
[2017-11-14] MEDS: SODIUM CHLORIDE 0.9% FLUSH 10 ML FLUSH IV FLUSH SCH ×3 (08:49→20:48)
[2017-11-14] MEDS: DOCUSATE SODIUM 50 MG/SENNA 8.6 MG TAB PO SCH (08:49)
[2017-11-14] MEDS ORDERED: ASPIRIN 81 MG CHEW TAB PO SCH (09:00)
[2017-11-14] MEDS ORDERED: HEPARIN SODIUM - IV 10,000 UNITS/10 ML VIAL IV PUSH ONE (10:15)
[2017-11-14] MEDS ORDERED: HEPARIN-D5W 25,000 U/250 ML 250 ML IV PRN (10:15)
[2017-11-14] MEDS ORDERED: VANCOMYCIN HCL 1000 MG VIAL ONE (11:58)
[2017-11-14] MEDS ORDERED: HEPARIN SODIUM - SQ 10,000 UNITS/ML VIAL ONE (11:58)
[2017-11-14] MEDS ORDERED: ceFAZolin INJ 1,000 MG VIAL ONE (11:58)
[2017-11-14] MEDS ORDERED: PHENYLEPH/NS 1000 MCG/10 ML SYR IV ONE (12:00)
[2017-11-14] MEDS ORDERED: ePHEDrine/NS 25 MG/5 ML SYRINGE IV ONE (12:00)
[2017-11-14] MEDS ORDERED: DEXMEDETOMIDINE HCL 200 MCG/2 ML VIAL IV ONE (12:00)
[2017-11-14] MEDS ORDERED: NS IV ONE (12:00)
[2017-11-14] MEDS ORDERED: CALCIUM CHLORIDE 10% SOLN 1 GRAM/10 ML SYR IV ONE (12:00)
[2017-11-14] MEDS ORDERED: MAGNESIUM SULFATE 1 GM/2 ML VIAL IV ONE (12:00)
[2017-11-14] MEDS ORDERED: HEPARIN SODIUM - SQ 10,000 UNITS/ML VIAL OTHER ONE (12:00)
[2017-11-14] MEDS ORDERED: PROPOFOL 200 MG/20 ML AMP IV ONE (12:00)
[2017-11-14] MEDS ORDERED: PROTAMINE SULFATE 250 MG/25 ML VIAL IV ONE (12:00)
[2017-11-14] MEDS ORDERED: NORMOSOL R INJ 2,000 ML IV ONE (12:00)
[2017-11-14] MEDS ORDERED: AMINOCAPROIC ACID INJ 250 MG/ML 20 ML VIAL IV ONE (12:00)
[2017-11-14] MEDS ORDERED: VECURONIUM BROMIDE 10 MG VIAL IV ONE (12:00)
[2017-11-14] MEDS ORDERED: SUCCINYLCHOLINE CHLORIDE 200 MG/10 ML VIAL IV ONE (12:00)
--- NOTE | 2017-11-14 12:44 | PD.CAR.PN ---
CVT Progress Note Subjective/Hospital Course: 52-year-old male who has been complaining of some chest pain off and on over the past 6 or 7 months with exertion. He gets it every few days. Apparently was at work, works for [employer] at a [employer], when he developed severe midsternal chest pain radiating down both arms, a 10/10. The pain did not resolve. He proceeded to the emergency department. The patient has had apparently a significant family history with an uncle with coronary artery disease and some cousins that have had cardiac stents at an early age. He was ruled in for a non-STEMI. His troponins peaked at 26.9. He underwent cardiac catheterization by Dr. Flynn, which showed the proximal LAD 100%, the RCA 100%. EF tentatively per echo was approximately 60%. PAST MEDICAL HISTORY: Chronic kidney disease stage III, hypertension, and rheumatoid arthritis. He also had a testicular cancer in 1995 with chemo and radiation. He had an exploratory laparotomy with lysis of adhesions and then a bowel obstruction also in 2006, left orchiectomy with lymph node dissection in 1995. 11/14 pt continued to have chest pain despite NTG gtt heparin gtt started / ECG st depression lateral leads Dr Wade notified / pt now NPO for surgery today / CABG x 2 Objective: GENERAL: A&O x 3 SKIN: Warm and dry. HEAD: Normocephalic. EYES: No scleral icterus. No injection or drainage. NECK: Supple, trachea midline. No JVD or lymphadenopathy. CARDIOVASCULAR: Regular rate and rhythm without murmurs, gallops, or rubs. RESPIRATORY: Breath sounds equal bilaterally. No accessory muscle use. GASTROINTESTINAL: Abdomen soft, non-tender, nondistended. MUSCULOSKELETAL: No cyanosis, or edema. BACK: Nontender without obvious deformity. No CVA tenderness. Vital Signs Date Time Temp Pulse Resp B/P (MAP) Pulse Ox O2 Delivery O2 Flow Rate FiO2 11/14/17 12:00 67 11/14/17 11:00 74 11/14/17 11:00 98.5 71 19 123/78 (93) 94 11/14/17 10:00 79 11/14/17 09:14 18 11/14/17 09:14 18 11/14/17 09:00 73 11/14/17 08:00 85 11/14/17 07:00 84 20 142/83 (102) 96 11/14/17 07:00 62 11/14/17 06:13 65 11/14/17 05:00 74 11/14/17 04:00 72 11/14/17 03:00 98.4 65 105/64 (78) 96 11/14/17 03:00 61 11/14/17 02:40 60 11/14/17 01:02 78 11/14/17 00:00 65 11/13/17 23:00 98.6 70 19 145/85 (105) 94 11/13/17 23:00 70 11/13/17 22:00 68 11/13/17 21:36 94 11/13/17 21:00 76 11/13/17 20:35 98.9 76 20 128/83 (98) 98 11/13/17 20:00 72 11/13/17 19:00 70 11/13/17 18:01 65 11/13/17 17:00 62 11/13/17 16:00 60 11/13/17 15:00 64 11/13/17 15:00 98.0 64 16 128/84 (99) 98 11/13/17 14:38 78 129/87 11/13/17 14:00 62 11/13/17 13:00 54 11/13/17 12:51 14 Labs: Laboratory Tests Test 11/14/17 04:47 11/14/17 11:36 White Blood Count 8.6 TH/MM3 (4.0-11.0) Red Blood Count 3.43 MIL/MM3 (4.50-5.90) Hemoglobin 11.2 GM/DL (13.0-17.0) Hematocrit 32.2 % (39.0-51.0) Mean Corpuscular Volume 93.7 FL (80.0-100.0) Mean Corpuscular Hemoglobin 32.6 PG (27.0-34.0) Mean Corpuscular Hemoglobin Concent 34.8 % (32.0-36.0) Red Cell Distribution Width 13.1 % (11.6-17.2) Platelet Count 229 TH/MM3 (150-450) Mean Platelet Volume 7.6 FL (7.0-11.0) Neutrophils (%) (Auto) 71.2 % (16.0-70.0) Lymphocytes (%) (Auto) 13.6 % (9.0-44.0) Monocytes (%) (Auto) 13.2 % (0.0-8.0) Eosinophils (%) (Auto) 1.1 % (0.0-4.0) Basophils (%) (Auto) 0.9 % (0.0-2.0) Neutrophils # (Auto) 6.1 TH/MM3 (1.8-7.7) Lymphocytes # (Auto) 1.2 TH/MM3 (1.0-4.8) Monocytes # (Auto) 1.1 TH/MM3 (0-0.9) Eosinophils # (Auto) 0.1 TH/MM3 (0-0.4) Basophils # (Auto) 0.1 TH/MM3 (0-0.2) CBC Comment DIFF FINAL Differential Comment Blood Urea Nitrogen 13 MG/DL (7-18) Creatinine 1.26 MG/DL (0.60-1.30) Random Glucose 98 MG/DL (74-106) Calcium Level 8.5 MG/DL (8.5-10.1) Sodium Level 138 MEQ/L (136-145) Potassium Level 4.1 MEQ/L (3.5-5.1) Chloride Level 108 MEQ/L (98-107) Carbon Dioxide Level 23.2 MEQ/L (21.0-32.0) Anion Gap 7 MEQ/L (5-15) Estimat Glomerular Filtration Rate 61 ML/MIN (>89) Prothrombin Time 10.0 SEC (9.8-11.6) Prothromb Time International Ratio 1.0 RATIO Activated Partial Thromboplast Time 22.0 SEC (24.3-30.1) Result Diagram: 11/14/17 0447 11/14/17 0447 (1) Renal insufficiency (2) NSTEMI (non-ST elevated myocardial infarction) Plan: for surgery today (3) Rheumatoid arthritis (4) Hypertensive urgency Aure Lee Nov 14, 2017 12:44
[2017-11-14] MEDS ORDERED: LACTATED RINGER'S 1000 ML INJ 500 ML IV PRN (16:02)
[2017-11-14] MEDS ORDERED: DOBUTamine PREMIX DRIP 250 ML IV PRN (16:02)
--- NOTE | 2017-11-14 16:11 | PD.OP ---
cc: Marie Wade MD; Golden Flynn MD Operative Report Date of Surgery: Nov 14, 2017 Preoperative Diagnosis: Postoperative Diagnosis: Procedure: 1. Emergent Off-pump Coronary Artery Bypass Grafting x 2 with Left Internal Mammary Artery (FOSTER) to Left Anterior Descending (LAD), reverse saphenous vein graft to the distal Right Coronary Artery (RCA) 2. Left Leg Endoscopic Vein [place] 3. Intraoperative Vein Mapping. Surgeon: Marie Wade Measurement And Sensing Technician(s): Svetlana Garber Operation and Findings: PREPROCEDURE DIAGNOSES 1. Severe Multi Vessel Coronary Artery Disease. 2. Acute Myocardial Infarction (NSTEMI) 3. Ongoing Ischemia POSTPROCEDURE DIAGNOSES Same SURGICAL PROCEDURE 1. Emergent Off-pump Coronary Artery Bypass Grafting x 2 with Left Internal Mammary Artery (FOSTER) to Left Anterior Descending (LAD), reverse saphenous vein graft to the distal Right Coronary Artery (RCA) 2. Left Leg Endoscopic Vein [place] 3. Intraoperative Vein Mapping. SURGEON Marie Wade MD INTENSIVE CARE UNIT NURSE Reny Garber PA-C ANESTHESIA General endotracheal [employer] FELICE Pichardo MD PREPARATION ChloraPrep. COUNTS Needle, sponge, and instrument counts were correct. DRAINS Two 32-[place] mediastinal tubes. COMPLICATIONS None. INDICATIONS FOR PROCEDURE The patient is a 52-year-old presenting with chest pain and AMI. Patient was noted to have two-vessel coronary artery disease. The patient is being brought to the operating room emergently for surgical revascularization therapy given progressive symptoms and EKG evidence of ongoing ischemia. PROCEDURE Patient was brought to the operating room and placed supine on the OR table. Following the induction of adequate general endotracheal anesthesia and placement of appropriate monitoring devices, intraoperative vein mapping was performed which revealed suitable-caliber conduit in bilateral lower extremities. The patient was then prepped and draped in standard sterile fashion. Next, 2500 units of intravenous heparin was given. The left greater saphenous vein was harvested endoscopically. This appeared to be a useable- caliber conduit. Simultaneously, a median sternotomy was performed and the left internal mammary artery dissected free off the posterior sternal table. The patient was systemically heparinized and anticoagulation monitored by serial ACT measurements. The internal mammary artery had good pulsatile flow in it and was a good-caliber conduit. The pericardium was then divided in the midline , the cradle created and targets analyzed. At this point, all anastomoses were performed in a beating-heart fashion using the [place] stabilizing system. The left internal mammary artery was anastomosed to the mid LAD (2 mm) in an end-to- side fashion using 7-0 Prolene. Segment of saphenous vein graft was then anastomosed to the distal RCA (2.5 mm) in an end-to-side fashion using 7-0 Prolene. The proximal anastomosis was then constructed to the ascending aorta in a running manner using 6-0 Prolene. All anastomotic sites were inspected and appeared to be hemostatic and patent. Protamine solution was given. Strict hemostasis was assured. The closure was undertaken. 2 chest tubes were placed. The pericardium was reapproximated in the midline. The sternum was approximated using sternal wires. The muscular and fascial layer were then closed in 3 layers. The endoscopic vein harvest site was closed in 2 layers. The patient tolerated the procedure well and was transferred to CVICU in stable condition. Marie Wade MD Nov 14, 2017 16:11
[2017-11-14] MEDS ORDERED: METOPROLOL TARTRATE 5 MG/5 ML VIAL IV PUSH PRN (16:15)
[2017-11-14] MEDS ORDERED: MORPHINE SULFATE 4 MG/ML INJ IV PUSH PRN (16:15)
[2017-11-14] MEDS ORDERED: hydrALAZINE HCL 20 MG/ML VIAL IV PUSH PRN (16:15)
[2017-11-14] MEDS ORDERED: HEPARIN SODIUM - IV 10,000 UNITS/10 ML VIAL IV PUSH PRN ×2 (16:15)
[2017-11-14] MEDS ORDERED: DOPamine 800 MG/500 ML INJ 500 ML IV PRN (16:15)
[2017-11-14] MEDS ORDERED: MEPERIDINE HCL 25 MG/ML VIAL IV PUSH PRN (16:15)
[2017-11-14] MEDS ORDERED: ACETAMINOPHEN 325 MG TAB PO PRN (16:15)
[2017-11-14] MEDS ORDERED: SODIUM CHLORIDE 0.9% FLUSH 10 ML FLUSH IV FLUSH PRN (16:15)
[2017-11-14] MEDS ORDERED: DEXTROSE 50% IN WATER 50 ML VIAL(D50) IV PUSH PRN (16:15)
[2017-11-14] MEDS ORDERED: INSULIN REGULAR (IV INFUSION) 100 UNITS in SODIUM CHLORIDE 0.9% INJ 99 ML IV PRN (16:15)
[2017-11-14] MEDS ORDERED: MAGNESIUM SULFATE INJ 2 GM in SODIUM CHLORIDE 0.9% INJ 100 ML IV PRN ×4 (16:15)
[2017-11-14] MEDS ORDERED: ACETAMINOPHEN 650 MG SUPP RECTAL PRN (16:15)
[2017-11-14] MEDS ORDERED: CLEVIDIPINE INJ 50 ML IV PRN (16:15)
[2017-11-14] MEDS ORDERED: ALBUMIN 5% INJ 250 ML IV PRN (16:15)
[2017-11-14] MEDS ORDERED: POTASSIUM CHLORIDE 20 MEQ CONTROLLED RELEASE TAB PO PRN ×2 (16:15)
[2017-11-14] MEDS ORDERED: Post-op Orders (for Pharmacy) OTHER ONE (16:15)
[2017-11-14] MEDS ORDERED: RESP: ALBUTEROL 2.5 MG/IPRATROPIUM 0.5 MG NEB (PRN) NEB (16:15)
[2017-11-14] MEDS ORDERED: DEXMEDETOMIDINE INJ 200 MCG in SODIUM CHLORIDE 0.9% INJ 50 ML IV PRN (16:15)
[2017-11-14] MEDS ORDERED: POTASSIUM CHLOR 20 MEQ PREMIX 100 ML IV PRN ×3 (16:15)
[2017-11-14] MEDS ORDERED: NITROGLYCERIN-D5W 50 MG/250 ML 250 ML IV PRN (16:15)
[2017-11-14] MEDS ORDERED: CALCIUM CHLORIDE INJ 1 GM in SODIUM CHLORIDE 0.9% INJ 100 ML IV PRN (16:15)
[2017-11-14] MEDS ORDERED: CALCIUM CHLORIDE 10% 1 GRAM/10 ML VIAL IV PUSH PRN (16:15)
[2017-11-14] MEDS ORDERED: PHENYLEPHRINE INJ 40 MG in DEXTROSE 5% IN WATE 500 ML INJ 496 ML IV PRN ×2 (16:15)
[2017-11-14] MEDS ORDERED: RESP: RACEPINEPHRINE 2.25% 0.5 ML NEB NEB PRN (16:15)
[2017-11-14] MEDS ORDERED: SODIUM BICARBONATE 8.4% SOLN 50 MEQ/50 ML VIAL IV PUSH PRN ×2 (16:15)
[2017-11-14] MEDS ORDERED: ONDANSETRON HCL 4 MG/2 ML VIAL IV PUSH PRN (16:15)
[2017-11-14] MEDS ORDERED: fentaNYL CITRATE 250 MCG/5 ML AMP ONE ×2 (17:00→17:01)
[2017-11-14] MEDS ORDERED: MIDAZOLAM HCL 2 MG/2 ML VIAL ONE (17:00)
[2017-11-14] MEDS: ACETAMINOPHEN 1000 MG/100 ML 100 ML IV SCH ×2 (17:44→22:30)
[2017-11-14] MEDS ORDERED: DEXMEDETOMIDINE 200 MCG in NS 48 ML IV PRN (17:45)
--- NOTE | 2017-11-14 17:49 | RADRPT ---
EXAM DATE/TIME: 11/14/2017 17:06 [facility] COMPARISON: CHEST SINGLE AP, November 12, 2017, 11:14. INDICATIONS : Status post CABG. MEDICAL HISTORY : Hypertension. Rheumatoid arthritis. Carcinoma, testicular. Dyspnea. SURGICAL HISTORY : Exploratory lap. Testicle removed. ENCOUNTER: Initial ACUITY: 1 day PAIN SCORE: Non-responsive. LOCATION: Bilateral chest FINDINGS: Endotracheal tube tip is 1.6 cm above the jovany. Bilateral chest tubes present in the medial right and lateral left chest. No evidence of pneumothorax. Left subclavian catheter tip at the distal sup erior vena cava. Gastric tube tip and side-port within the stomach. Ill-defined infiltrates with ai r bronchograms present in the left lower lung. The right lung is clear. CONCLUSION: 1. ET tube tip is within 2 cm of the jovany and needs to be withdrawn 1 cm. 2. Partially consolidated infiltrates or atelectasis in the left lower lobe. Edvin Lomeli MD on November 14, 2017 at 17:45 Board Certified Radiologist. This report was verified electronically.
[2017-11-14 20:47] LABS: HEMOGLOBIN A1C 5.1 % (4.3-6.0)
[2017-11-14] MEDS: METOPROLOL TARTRATE 50 MG TAB PO SCH (20:48)
[2017-11-14] MEDS: AMIODARONE 200 MG TAB PO SCH (20:48)
[2017-11-14] MEDS: ATORVASTATIN 40 MG TAB PO SCH (20:48)
[2017-11-14] MEDS ORDERED: ceFAZolin 2 GM PREMIX 50 ML IV SCH (21:00)
[2017-11-14] MEDS: RESP: ALBUTEROL 2.5 MG/IPRATROPIUM 0.5 MG NEB (SCH) NEB (21:07)
[2017-11-14 23:03] LABS: BILIRUBIN, URINE NEG (NEG); BLOOD, URINE NEG (NEG); GLUCOSE,URINE NEG (NEG); KETONE, URINE 10 mg/dL (NEG); MUCUS URINE FEW /lpf (OCC); NITRITE,URINE NEG (NEG); SQUAMOUS EPITHELIAL CELL URINE <1 /hpf (0-5); URINE COLOR YELLOW (YELLW/STRAW); URINE LEUKOCYTE ESTERASE NEG (NEG)
[2017-11-15] VITALS (21 sets, daily range): BP systolic 115–122; BP diastolic 67–80; PULSE 74–113; RESP 16–21; TEMP 98–101.7; O2SAT 92–98
[2017-11-15] MEDS: HYDROmorphone HCL PF 2 MG/ML VIAL IV PUSH PRN ×3 (01:25→07:30)
[2017-11-15] MEDS: ACETAMINOPHEN/HYDROcodone 325 MG/5 MG TAB PO PRN ×6 (01:25→21:19)
[2017-11-15] MEDS: RESP: ALBUTEROL 2.5 MG/IPRATROPIUM 0.5 MG NEB (SCH) NEB ×5 (04:03→20:46)
[2017-11-15] MEDS: ACETAMINOPHEN 1000 MG/100 ML 100 ML IV SCH ×2 (05:00→10:07)
[2017-11-15 05:23] LABS: HEMOGLOBIN 10.2 GM/DL (13.0-17.0); MEAN CELL VOLUME 93.2 FL (80.0-100.0); MEAN CORPUSCULAR HEMOGLOBIN 32.7 PG (27.0-34.0); MEAN CORPUSCULAR HGB CONC 35.1 % (32.0-36.0); MEAN PLATELET VOLUME 7.8 FL (7.0-11.0); PLATELET COUNT 201 TH/MM3 (150-450); RED BLOOD COUNT 3.11 MIL/MM3 (4.50-5.90); RED CELL DISTRIBUTION WIDTH 13.2 % (11.6-17.2)
[2017-11-15] MEDS: PANTOPRAZOLE SOD 40 MG DELAYED RELEASE TAB PO SCH (05:23)
[2017-11-15 05:51] LABS: BICARBONATE 21.2 MEQ/L (21.0-32.0); CALCIUM 8.2 MG/DL (8.5-10.1); CREATININE 1.15 MG/DL (0.60-1.30); MAGNESIUM 1.8 MG/DL (1.5-2.5)
[2017-11-15] MEDS ORDERED: CEFAZOLIN INJ 2,000 MG in SODIUM CHLORIDE 0.9% INJ 100 ML IV SCH (06:00)
--- NOTE | 2017-11-15 06:29 | RADRPT ---
EXAM DATE/TIME: 11/15/2017 04:29 [facility] COMPARISON: CHEST SINGLE AP, November 14, 2017, 17:06. INDICATIONS : Shortness of breath, possible pulmonary disease. MEDICAL HISTORY : Hypertension. Rheumatoid arthritis. Carcinoma, testicular. SURGICAL HISTORY : Exploratory lap ENCOUNTER: Subsequent ACUITY: 2 days PAIN SCORE: Non-responsive. LOCATION: Bilateral chest FINDINGS: There has been interval extubation and removal of nasogastric tube. Thoracostomy tubes remain. Left s ubclavian central line is stable. There is mild contusion or atelectasis in the left lung base. Right lung is grossly clear. Cardiac contours are unchanged. CONCLUSION: Interval extubation. Stable aeration. Fransisco Jaeger MD on November 15, 2017 at 6:26 Board Certified Radiologist. This report was verified electronically.
[2017-11-15] MEDS: SODIUM CHLORIDE 0.9% FLUSH 10 ML FLUSH IV FLUSH SCH ×2 (07:52→20:31)
[2017-11-15] MEDS: ASPIRIN 81 MG CHEW TAB PO SCH (08:25)
[2017-11-15] MEDS: METOPROLOL TARTRATE 50 MG TAB PO SCH ×2 (08:25→20:31)
[2017-11-15] MEDS: CLOPIDOGREL 75 MG TAB PO SCH (08:26)
[2017-11-15] MEDS: AMIODARONE 200 MG TAB PO SCH ×2 (08:26→20:30)
[2017-11-15] MEDS ORDERED: DEXTROSE 50% IN WATER 50 ML VIAL(D50) IV PUSH PRN (09:15)
[2017-11-15] MEDS ORDERED: GLUCAGON 1 MG/ML VIAL OTHER PRN (09:15)
[2017-11-15] MEDS ORDERED: BISACODYL 10 MG SUPP RECTAL PRN (09:15)
[2017-11-15] MEDS: DOCUSATE SODIUM 100 MG CAP PO SCH ×2 (09:33→20:30)
[2017-11-15] MEDS: INSULIN ASPART SUPPLEMENTAL SCALE SQ SCH ×4 (09:37→21:16)
--- NOTE | 2017-11-15 09:56 | HHI.PR ---
Subjective Remarks alot of postop pain Objective Vitals heart reg lung cta abd s/nt ext no edema ant chest bandaged chest tube Vital Signs Date Time Temp Pulse Resp B/P (MAP) Pulse Ox O2 Delivery O2 Flow Rate FiO2 11/15/17 08:39 93 Nasal Cannula 5.00 11/15/17 07:00 98.5 84 18 122/80 (94) 98 Arterial Line 11/15/17 07:00 84 11/15/17 07:00 98 Nasal Cannula 5.00 Humidified 11/15/17 04:05 95 Nasal Cannula 3.00 11/15/17 03:31 98.4 78 18 117/76 (90) 95 117/67 (84) 11/15/17 03:00 76 11/15/17 01:00 101.2 11/15/17 00:00 96 Nasal Cannula 4.00 Humidified 11/15/17 00:00 101.7 11/14/17 23:00 100.6 89 20 126/83 (97) 95 138/81 (100) 11/14/17 23:00 90 11/14/17 22:00 102.3 11/14/17 21:07 96 Nasal Cannula 5.00 11/14/17 21:00 101.2 11/14/17 20:00 101.1 11/14/17 19:15 95 Nasal Cannula 5.00 11/14/17 19:00 75 11/14/17 19:00 99.8 74 14 107/69 (82) 96 109/61 (77) 11/14/17 18:37 96 Nasal Cannula 5 11/14/17 18:37 96 Nasal Cannula 5.00 11/14/17 18:25 95 Nasal Cannula 5.00 11/14/17 17:00 98 50 11/14/17 17:00 50 11/14/17 17:00 99 Mechanical Ventilator 50 11/14/17 17:00 68 11/14/17 16:00 98.5 71 19 123/78 (93) 94 11/14/17 12:00 67 11/14/17 11:00 74 11/14/17 11:00 98.5 71 19 123/78 (93) 94 11/14/17 10:00 79 11/15/17 11/15/17 11/16/17 15:00 23:00 07:00 Output Total 1245 ml Balance -1245 ml Output Urine Total 885 ml Chest Tube Drainage Total 360 ml Result Diagram: 11/15/17 0500 11/15/17 0500 Imaging Last Impressions Chest X-Ray 11/12/17 1037 Signed Impressions: Service Date/Time: Sunday, November 12, 2017 11:14 - CONCLUSION: The lungs are clear. Edvin Lomeli MD Aorta CTA 11/12/17 0000 Signed Impressions: Service Date/Time: Sunday, November 12, 2017 11:26 - CONCLUSION: 1. No evidence of aortic dissection or aneurysmal dilation. 2. No pulmonary embolus identified. 3. Moderate atherosclerotic plaquing in the coronary arteries. 4. The solid organs of the abdomen are grossly intact. Caleb Montes MD A/P Problem List: (1) NSTEMI (non-ST elevated myocardial infarction) ICD Codes: I21.4 - Non-ST elevation (NSTEMI) myocardial infarction Status: Acute Plan: Chest pain NSTEMI 2d echo: 11/13: The left ventricular systolic function is normal with an estimated ejection fraction in the range of 60-65%. The right ventricle is mildly dilated. There is trace tricuspid valve regurgitation. [facility] 11/13: Occluded LAD and RCA s/p CABG x 2 on 11/14 prn pain control cont statin/bb/asa/plavix PT daily Hypertensive Urgency BP 207/130 apon arrival cont ntg. bb. Chronic kidney disease stage III In review of outpatient records GFR ranged from 28- 63 monitor avoid nephrotoxic agents Rheumatoid Arthritis continue patient's home Enbrel (2) Hypertensive urgency ICD Codes: I16.0 - Hypertensive urgency Status: Acute (3) Rheumatoid arthritis ICD Codes: M06.9 - Rheumatoid arthritis, unspecified Status: Chronic Ethan Babb MD Nov 15, 2017 09:56
--- NOTE | 2017-11-15 16:27 | PD.CAR.PN ---
CVT Progress Note Subjective/Hospital Course: 52-year-old male who has been complaining of some chest pain off and on over the past 6 or 7 months with exertion. He gets it every few days. 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 The pain did not resolve. He proceeded to the emergency department. The patient has had apparently a significant family history with an uncle with coronary artery disease and some cousins that have had cardiac stents at an early age. He was ruled in for a non-STEMI. His troponins peaked at 26.9. He underwent cardiac catheterization by Dr. Flynn, which showed the proximal LAD 100%, the RCA 100%. EF tentatively per echo was approximately 60%. PAST MEDICAL HISTORY: Chronic kidney disease stage III, hypertension, and rheumatoid arthritis. He also had a testicular cancer in 1995 with chemo and radiation. He had an exploratory laparotomy with lysis of adhesions and then a bowel obstruction also in 2006, left orchiectomy with lymph node dissection in 1995. 11/14 pt continued to have chest pain despite NTG gtt heparin gtt started / ECG st depression lateral leads Dr Wade notified / pt now NPO for surgery today / CABG x 2 surgery : 11/14 1. Emergent Off-pump Coronary Artery Bypass Grafting x 2 with Left Internal Mammary Artery (FOSTER) to Left Anterior Descending (LAD), reverse saphenous vein graft to the distal Right Coronary Artery (RCA) 2. Left Leg Endoscopic Vein [place] extubated after surgery crystalloid 2600cc, cell saver 250cc, 200cc EBL 4/5 pt still very painful postop pain , wants "Dilaudid" po meds and breakthrough fentanly ordered OOB ambulate, leave chest tubes in on statin , BB , ASA , amiodarone Objective: GENERAL: A&O x 3 SKIN: Warm and dry. prevena dressing to chest , incision intact left leg HEAD: Normocephalic. EYES: No scleral icterus. No injection or drainage. NECK: Supple, trachea midline. No JVD or lymphadenopathy. CARDIOVASCULAR: Regular rate and rhythm without murmurs, gallops, or rubs. RESPIRATORY: Breath sounds equal bilaterally. No accessory muscle use. diminished in bases, chest tube to wall suction no air leak / drained 360cc/ 12 hrs GASTROINTESTINAL: Abdomen soft, non-tender, nondistended. MUSCULOSKELETAL: No cyanosis, or edema. BACK: Nontender without obvious deformity. No CVA tenderness. Vital Signs Date Time Temp Pulse Resp B/P (MAP) Pulse Ox O2 Delivery O2 Flow Rate FiO2 11/15/17 16:03 82 11/15/17 15:11 98.5 84 16 115/74 (88) 93 11/15/17 15:11 82 11/15/17 15:11 3 Nasal Cannula 5.00 11/15/17 14:24 16 11/15/17 13:36 18 11/15/17 13:04 84 11/15/17 12:22 74 11/15/17 11:45 92 Nasal Cannula 5.00 11/15/17 11:45 98.4 95 16 115/76 (89) 92 11/15/17 11:45 79 11/15/17 10:36 16 11/15/17 08:39 93 Nasal Cannula 5.00 11/15/17 07:00 98.5 84 18 122/80 (94) 98 Arterial Line 11/15/17 07:00 84 11/15/17 07:00 98 Nasal Cannula 5.00 Humidified 11/15/17 04:05 95 Nasal Cannula 3.00 11/15/17 03:31 98.4 78 18 117/76 (90) 95 117/67 (84) 11/15/17 03:00 76 11/15/17 01:00 101.2 11/15/17 00:00 96 Nasal Cannula 4.00 Humidified 11/15/17 00:00 101.7 11/14/17 23:00 100.6 89 20 126/83 (97) 95 138/81 (100) 11/14/17 23:00 90 11/14/17 22:00 102.3 11/14/17 21:07 96 Nasal Cannula 5.00 11/14/17 21:00 101.2 11/14/17 20:00 101.1 11/14/17 19:15 95 Nasal Cannula 5.00 11/14/17 19:00 75 11/14/17 19:00 99.8 74 14 107/69 (82) 96 109/61 (77) 11/14/17 18:37 96 Nasal Cannula 5 11/14/17 18:37 96 Nasal Cannula 5.00 11/14/17 18:25 95 Nasal Cannula 5.00 11/14/17 17:00 98 50 11/14/17 17:00 50 11/14/17 17:00 99 Mechanical Ventilator 50 11/14/17 17:00 68 Labs: Laboratory Tests Test 11/15/17 05:00 White Blood Count 14.0 TH/MM3 (4.0-11.0) Red Blood Count 3.11 MIL/MM3 (4.50-5.90) Hemoglobin 10.2 GM/DL (13.0-17.0) Hematocrit 29.0 % (39.0-51.0) Mean Corpuscular Volume 93.2 FL (80.0-100.0) Mean Corpuscular Hemoglobin 32.7 PG (27.0-34.0) Mean Corpuscular Hemoglobin Concent 35.1 % (32.0-36.0) Red Cell Distribution Width 13.2 % (11.6-17.2) Platelet Count 201 TH/MM3 (150-450) Mean Platelet Volume 7.8 FL (7.0-11.0) Blood Urea Nitrogen 9 MG/DL (7-18) Creatinine 1.15 MG/DL (0.60-1.30) Random Glucose 113 MG/DL (74-106) Calcium Level 8.2 MG/DL (8.5-10.1) Magnesium Level 1.8 MG/DL (1.5-2.5) Sodium Level 137 MEQ/L (136-145) Potassium Level 4.1 MEQ/L (3.5-5.1) Chloride Level 104 MEQ/L (98-107) Carbon Dioxide Level 21.2 MEQ/L (21.0-32.0) Anion Gap 12 MEQ/L (5-15) Estimat Glomerular Filtration Rate 67 ML/MIN (>89) Result Diagram: 11/15/17 0500 11/15/17 0500 Telemetry: NSR (1) Renal insufficiency (2) NSTEMI (non-ST elevated myocardial infarction) Plan: for surgery today (3) Rheumatoid arthritis (4) Hypertensive urgency (5) S/P CABG x 2 Plan: pain control ASA, statin , BB amiodarone OOB ambulate pulm toileting CM to eval [facility] on discharge Aure Lee Nov 15, 2017 16:27
--- NOTE | 2017-11-15 16:30 | HHI.FF ---
Face to Face Verification Diagnosis: (1) Renal insufficiency (2) NSTEMI (non-ST elevated myocardial infarction) (3) Rheumatoid arthritis (4) Hypertensive urgency (5) S/P CABG x 2 Home Health Nursing Order: Signs/symptoms of disease process Medication education-adverse effect Wound care and dressing changes Nursing assessment with vital signs Instructions: Heart and Vascular Surgery patients *Special attention to sternal dressing Mandatory frequency Assess and evaluation, 4 days in a row The next week 3X week 2 times a week for 4 weeks 1 time a week for 5 weeks Schedule Heart and Vascular patients for full 60 day certification period Initial visit Review Open Heart Surgery Discharge Instructions (Sternal precautions, Activity, Elastic hose, Incision care, Driving, Incentive spirometry, Smoking, [place], Work and other) Need Betadine to paint incision Medication reconciliation Importance of follow up care/ check on appointments Make calendar record temperature daily When to call [facility] at Home nurse, review instructions, phone list Incentive Spirometry, demonstration Visit 1- Begin discharge instruction for patient family and/ or caregiver using teach back method- Signs and symptoms of infection Disease characteristics Medicines and side effects Foods and nutrition/ appetite Infection control/ hand washing/ hygiene Visit 2- Continue teaching Discharge instructions- include additional information on smoking cessation , sternal dressing (sternal vac) Visit 3- Continue teaching- Cough and deep breathing, incision monitoring. Choose my plate Visit 4- Continue teaching- Discuss limitations Discuss how they are feeling Discuss progress toward goals Remaining visits- continue teaching and monitoring For any questions please call : Sunday 8am-5pm Heart & Vascular Surgery Office ( Dr. Waed & Dr. Kahn), After Hours / Nights (5pm -8am) Weekends and Holidays Please call [facility] Cardiac Intermediate Care Unit (CIC) Charge Nurse PREVENA Single Use Negative Wound Therapy System Caregiver Instruction Sheet 1. A Prevena dressing system was applied to the chest incision during surgery , to promote wound healing. It works via a suction device (negative pressure wound therapy) to remove low to moderate levels of exudate (drainage) and infectious materials. We recommend that the device stay in place for up to seven days, from day of surgery. 2. Day of Surgery__11/14/17 Day of Removal ___/06/30 3. The dressing should only be removed by a health healthcare social worker. Please arrange removal of device to coincide with Home Health visit and or with Nursing staff at Rehab 4. If skin reddening or irritation of skin occurs, or excessive drainage, please notify the Cardiovascular Surgeons office at [phone]. 5. Light showering is permissible; however the pump should be disconnected and placed in safe location, where it will not get wet. The dressing should not be exposed to direct spray or submerged in water. No bath tub / shower only. Ensure the end of the tubing attached to the dressing is facing down so that water does not enter the top of the tube. 6. To remove Prevena dressing: press purple button to turn off device / remove the suction. Then disconnect the tubing from the pump. The fixation strips should be stretched away from the skin and the dressing lifted at one corner and peeled back until it has been fully removed. 7. After removal, it is ok to shower daily using liquid dial soap and clean wash cloth, rinse and pat dry, and leave incision open to air dry. For any concerns regarding Prevena dressing, and or wounds, please contact Ibeth Dia, patient navigator at [phone] or notify the Cardiovascular Surgeons office at [phone]. Incentive spirometry Q1 hr x 10, while awake, also use acapella device hourly whole awake Sternal Breast Bone Precautions: NO pushing or pulling, ( pt must use sternal pillow to support chest with all activities and with coughing ( takes up to 3 months breast bone to heal ) Daily incision care: ok to shower daily, no tub bath. Wash all incisions with liquid dial soap, clean wash cloth to each site, rinse and pat dry. Observe for any signs of infection, such as drainage which is dark yellow, davis, green or foul smelling. Immediately report to the surgeon any drainage from the chest incision, or legs, and for any abnormal drainage from the chest tube sites. Notify surgeon if any temp >101.5 degrees F. When specialty dressing removed/ or if you do not have one, continue to shower daily as above, then rinse and pat incision dry and paint with betadine daily x 5 days. Allow steri strips to fall off if you have any. Avoid lotions, creams, salves, oils, etc. for the first month Please see attached forms for additional instructions regarding post Open Heart specialty wound vacuum dressings. SUSANA or Prevena , Dressing to be removed by Nursing staff on __11/21/[address] Kahn patients , please obtain CBC, BMP, PA & Lat CXR in 2 weeks, results to Dr. Kahn ( prescription will be given) ( ) (Tele: [phone]) , Valve replacement pts will need 2decho in 2 weeks with results to Dr. Kahn . Please obtain 2 d echo at your tool room gear machine operator office if possible F/U appointment: as per DC instructions: PCP in 2 weeks, CV surgeon 2 weeks, Traffic Or System Dispatcher 3-4 weeks For any questions regarding incisions/ dressing / meds / post op care or above Symptoms, Sunday 8am-5pm Heart & Vascular Surgery Office ( Dr. Wade & Dr. Kahn), After Hours / Nights (5pm -8am) Weekends and Holidays Please call [facility] Cardiac Intermediate [facility] Unit (CIC) Charge Nurse I have seen patient Qamar Higuera on 11/15/17. My clinical findings support the need for the requested home health care services because: Deconditioned w/ increased weakness I certify that my clinical findings support that this patient is homebound because: Post-op weakness Aure Lee Nov 15, 2017 16:30
[2017-11-15] MEDS: ZOLPIDEM TARTRATE 5 MG TAB PO PRN (20:30)
[2017-11-15] MEDS: SENNOSIDES 8.6 MG TAB PO SCH (20:30)
[2017-11-15] MEDS: ATORVASTATIN 40 MG TAB PO SCH (20:31)
[2017-11-16] VITALS (29 sets, daily range): BP systolic 108–128; BP diastolic 62–84; PULSE 84–118; RESP 19–22; TEMP 98.4–99.1; O2SAT 83–95
[2017-11-16] MEDS: ACETAMINOPHEN/HYDROcodone 325 MG/5 MG TAB PO PRN ×3 (01:33→10:10)
[2017-11-16] MEDS: INSULIN ASPART SUPPLEMENTAL SCALE SQ SCH ×5 (02:00→21:00)
[2017-11-16] MEDS: PANTOPRAZOLE SOD 40 MG DELAYED RELEASE TAB PO SCH (05:12)
[2017-11-16 05:42] LABS: AUTOMATED NEUTROPHIL # 10.6 TH/MM3 (1.8-7.7); BASOPHIL % 0.3 % (0.0-2.0); EOSINOPHIL # 0.1 TH/MM3 (0-0.4); EOSINOPHIL % 0.5 % (0.0-4.0); HEMATOCRIT 27.5 % (39.0-51.0); HEMOGLOBIN 9.3 GM/DL (13.0-17.0); LYMPHOCYTE # 1.1 TH/MM3 (1.0-4.8); MEAN CELL VOLUME 94.8 FL (80.0-100.0); MEAN CORPUSCULAR HEMOGLOBIN 32.1 PG (27.0-34.0); MEAN CORPUSCULAR HGB CONC 33.9 % (32.0-36.0); MEAN PLATELET VOLUME 7.4 FL (7.0-11.0); MONOCYTE # 1.8 TH/MM3 (0-0.9); NEUT % 78.2 % (16.0-70.0); PLATELET COUNT 215 TH/MM3 (150-450); RED BLOOD COUNT 2.91 MIL/MM3 (4.50-5.90); RED CELL DISTRIBUTION WIDTH 13.6 % (11.6-17.2); WHITE BLOOD COUNT 13.5 TH/MM3 (4.0-11.0)
[2017-11-16 06:12] LABS: ALBUMIN 2.8 GM/DL (3.4-5.0); ALKALINE PHOSPHATASE 77 U/L (45-117); ALT (GPT) 25 U/L (12-78); AST (GOT) 80 U/L (15-37); BICARBONATE 26.9 MEQ/L (21.0-32.0); BLOOD UREA NITROGEN 15 MG/DL (7-18); CALCIUM 8.6 MG/DL (8.5-10.1); CHLORIDE 101 MEQ/L (98-107); CREATININE 1.46 MG/DL (0.60-1.30); GLOMERULAR FILTRATION RATE 51 ML/MIN (>89); GLUCOSE,RANDOM 99 MG/DL (74-106); MAGNESIUM 2.2 MG/DL (1.5-2.5); SODIUM (NA) 134 MEQ/L (136-145); TOTAL BILIRUBIN ADULT 1.7 MG/DL (0.2-1.0); TOTAL PROTEIN 7.1 GM/DL (6.4-8.2)
[2017-11-16] MEDS: ASPIRIN 81 MG CHEW TAB PO SCH (08:02)
[2017-11-16] MEDS: MAGNESIUM HYDROXIDE SUSP 30 ML CUP PO SCH (08:02)
[2017-11-16] MEDS: POLYETHYLENE GLYCOL 17 GM PKG PO SCH (08:02)
[2017-11-16] MEDS: DOCUSATE SODIUM 100 MG CAP PO SCH ×2 (08:02→21:00)
[2017-11-16] MEDS: MULTIVITAMINS/MINERALS THERAPEUTIC TAB PO SCH (08:03)
[2017-11-16] MEDS: METOPROLOL TARTRATE 50 MG TAB PO SCH ×2 (08:03→21:04)
[2017-11-16] MEDS: AMIODARONE 200 MG TAB PO SCH ×2 (08:03→21:03)
[2017-11-16] MEDS: CLOPIDOGREL 75 MG TAB PO SCH (08:03)
[2017-11-16] MEDS: SODIUM CHLORIDE 0.9% FLUSH 10 ML FLUSH IV FLUSH SCH ×2 (08:04→21:03)
--- NOTE | 2017-11-16 09:24 | HHI.PR ---
Subjective Remarks pt reports he would like to get off fentanyl Objective Vitals heart reg lung diminished bases chest tube and ant sternal wounds covered abd s/nt ext no edema Vital Signs Date Time Temp Pulse Resp B/P (MAP) Pulse Ox O2 Delivery O2 Flow Rate FiO2 11/16/17 06:10 101 11/16/17 05:40 106 11/16/17 04:10 89 11/16/17 03:54 98.8 96 20 112/69 (83) 92 11/16/17 03:54 92 11/16/17 03:54 92 Nasal Cannula 4.00 11/16/17 02:06 93 11/16/17 01:14 98 11/15/17 23:41 84 11/15/17 23:40 95 Nasal Cannula 5.00 11/15/17 23:40 84 11/15/17 23:40 98.4 93 21 115/69 (84) 95 11/15/17 22:16 82 11/15/17 21:00 90 11/15/17 20:46 92 Nasal Cannula 5.00 11/15/17 20:00 109 11/15/17 19:20 92 Nasal Cannula 5.00 11/15/17 19:20 113 11/15/17 19:20 98.0 102 21 121/76 (91) 92 11/15/17 18:11 16 11/15/17 18:03 91 11/15/17 17:32 90 11/15/17 16:03 82 11/15/17 16:00 16 11/15/17 15:11 98.5 84 16 115/74 (88) 93 11/15/17 15:11 82 11/15/17 15:11 3 Nasal Cannula 5.00 11/15/17 13:04 84 11/15/17 12:22 74 11/15/17 11:45 92 Nasal Cannula 5.00 11/15/17 11:45 98.4 95 16 115/76 (89) 92 11/15/17 11:45 79 11/15/17 10:36 16 Result Diagram: 11/16/17 0519 11/16/17 0519 Imaging Last Impressions Chest X-Ray 11/12/17 1037 Signed Impressions: Service Date/Time: Sunday, November 12, 2017 11:14 - CONCLUSION: The lungs are clear. Edvin Lomeli MD Aorta CTA 11/12/17 0000 Signed Impressions: Service Date/Time: Sunday, November 12, 2017 11:26 - CONCLUSION: 1. No evidence of aortic dissection or aneurysmal dilation. 2. No pulmonary embolus identified. 3. Moderate atherosclerotic plaquing in the coronary arteries. 4. The solid organs of the abdomen are grossly intact. Caleb Montes MD A/P Problem List: (1) NSTEMI (non-ST elevated myocardial infarction) ICD Codes: I21.4 - Non-ST elevation (NSTEMI) myocardial infarction Status: Acute Plan: Chest pain NSTEMI 2d echo: 11/13: The left ventricular systolic function is normal with an estimated ejection fraction in the range of 60-65%. The right ventricle is mildly dilated. There is trace tricuspid valve regurgitation. [facility] 11/13: Occluded LAD and RCA s/p CABG x 2 on 11/14 prn pain control cont statin/bb/asa/plavix PT daily d/c when ok with CTS Hypertensive Urgency BP 207/130 apon arrival cont ntg. bb. Chronic kidney disease stage III In review of outpatient records GFR ranged from 28- 63 monitor avoid nephrotoxic agents Rheumatoid Arthritis continue patient's home Enbrel (2) Hypertensive urgency ICD Codes: I16.0 - Hypertensive urgency Status: Acute (3) Rheumatoid arthritis ICD Codes: M06.9 - Rheumatoid arthritis, unspecified Status: Chronic Ethan Babb MD Nov 16, 2017 09:24
--- NOTE | 2017-11-16 10:00 | EKG ---
Date Performed: 11/15/2017 Time Performed: 05:22:22 PTAGE: 52 years EKG: Sinus rhythm rSr'(V1) - probable normal variant Lateral ST-T changes may be due to myocardial ischemia Abnormal E CG PREVIOUS TRACING : 11/14/2017 09.55 Since the prior tracing, there has been significant resolut ion of the anterolateral ST segment changes, but some minimal abnormalities persist. Serial tracings are concerning for reversible myocardial ischemia and clinical correlation will be important. DOCTOR: Antonia Avila Interpretating Date/Time 11/16/2017 10:00:20
--- NOTE | 2017-11-16 10:00 | EKG ---
Date Performed: 11/14/2017 Time Performed: 09:55:16 PTAGE: 52 years EKG: Sinus rhythm Rightward axis Extensive ST-T changes may be due to myocardial ischemia Abnormal ECG PREVIOUS TRACING : 11/13/[address] segment changes are new. Clinical correlation will be important. DOCTOR: Antonia Avila Interpretating Date/Time 11/16/2017 10:00:38
[2017-11-16] MEDS: RESP: ALBUTEROL 2.5 MG/IPRATROPIUM 0.5 MG NEB (SCH) NEB ×3 (10:09→21:02)
--- NOTE | 2017-11-16 10:20 | PD.CAR.PN ---
CVT Progress Note Subjective/Hospital Course: 52-year-old male who has been complaining of some chest pain off and on over the past 6 or 7 months with exertion. He gets it every few days. 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 The pain did not resolve. He proceeded to the emergency department. The patient has had apparently a significant family history with an uncle with coronary artery disease and some cousins that have had cardiac stents at an early age. He was ruled in for a non-STEMI. His troponins peaked at 26.9. He underwent cardiac catheterization by Dr. Flynn, which showed the proximal LAD 100%, the RCA 100%. EF tentatively per echo was approximately 60%. PAST MEDICAL HISTORY: Chronic kidney disease stage III, hypertension, and rheumatoid arthritis. He also had a testicular cancer in 1995 with chemo and radiation. He had an exploratory laparotomy with lysis of adhesions and then a bowel obstruction also in 2006, left orchiectomy with lymph node dissection in 1995. 11/14 pt continued to have chest pain despite NTG gtt heparin gtt started / ECG st depression lateral leads Dr Wade notified / pt now NPO for surgery today / CABG x 2 surgery : 11/14 1. Emergent Off-pump Coronary Artery Bypass Grafting x 2 with Left Internal Mammary Artery (FOSTER) to Left Anterior Descending (LAD), reverse saphenous vein graft to the distal Right Coronary Artery (RCA) 2. Left Leg Endoscopic Vein [place] extubated after surgery crystalloid 2600cc, cell saver 250cc, 200cc EBL 11/15 pt still very painful postop pain , wants "Dilaudid" po meds and breakthrough fentanly ordered OOB ambulate, leave chest tubes in on statin , BB , ASA , amiodarone 11/16 remains in NSR chest tube dc without difficulty IV pain meds dc , norco changed to 10 mg prn OOB, ambualte wean 02 as tolerated pulm toileting discussed with pt Objective: GENERAL: A&O x 3 SKIN: Warm and dry. prevena dressing to chest , incision intact ot left leg HEAD: Normocephalic. EYES: No scleral icterus. No injection or drainage. NECK: Supple, trachea midline. No JVD or lymphadenopathy. CARDIOVASCULAR: Regular rate and rhythm without murmurs, gallops, or rubs. RESPIRATORY: Breath sounds equal bilaterally. No accessory muscle use. diminished in bases GASTROINTESTINAL: Abdomen soft, non-tender, nondistended. MUSCULOSKELETAL: No cyanosis, or edema. BACK: Nontender without obvious deformity. No CVA tenderness. Vital Signs Date Time Temp Pulse Resp B/P (MAP) Pulse Ox O2 Delivery O2 Flow Rate FiO2 11/16/17 06:10 101 11/16/17 05:40 106 11/16/17 04:10 89 11/16/17 03:54 98.8 96 20 112/69 (83) 92 11/16/17 03:54 92 11/16/17 03:54 92 Nasal Cannula 4.00 11/16/17 02:06 93 11/16/17 01:14 98 11/15/17 23:41 84 11/15/17 23:40 95 Nasal Cannula 5.00 11/15/17 23:40 84 11/15/17 23:40 98.4 93 21 115/69 (84) 95 11/15/17 22:16 82 11/15/17 21:00 90 11/15/17 20:46 92 Nasal Cannula 5.00 11/15/17 20:00 109 11/15/17 19:20 92 Nasal Cannula 5.00 11/15/17 19:20 113 11/15/17 19:20 98.0 102 21 121/76 (91) 92 11/15/17 18:11 16 11/15/17 18:03 91 11/15/17 17:32 90 11/15/17 16:03 82 11/15/17 16:00 16 11/15/17 15:11 98.5 84 16 115/74 (88) 93 11/15/17 15:11 82 11/15/17 15:11 3 Nasal Cannula 5.00 11/15/17 13:04 84 11/15/17 12:22 74 11/15/17 11:45 92 Nasal Cannula 5.00 11/15/17 11:45 98.4 95 16 115/76 (89) 92 11/15/17 11:45 79 11/15/17 10:36 16 Labs: Laboratory Tests Test 11/16/17 05:19 White Blood Count 13.5 TH/MM3 (4.0-11.0) Red Blood Count 2.91 MIL/MM3 (4.50-5.90) Hemoglobin 9.3 GM/DL (13.0-17.0) Hematocrit 27.5 % (39.0-51.0) Mean Corpuscular Volume 94.8 FL (80.0-100.0) Mean Corpuscular Hemoglobin 32.1 PG (27.0-34.0) Mean Corpuscular Hemoglobin Concent 33.9 % (32.0-36.0) Red Cell Distribution Width 13.6 % (11.6-17.2) Platelet Count 215 TH/MM3 (150-450) Mean Platelet Volume 7.4 FL (7.0-11.0) Neutrophils (%) (Auto) 78.2 % (16.0-70.0) Lymphocytes (%) (Auto) 8.0 % (9.0-44.0) Monocytes (%) (Auto) 13.0 % (0.0-8.0) Eosinophils (%) (Auto) 0.5 % (0.0-4.0) Basophils (%) (Auto) 0.3 % (0.0-2.0) Neutrophils # (Auto) 10.6 TH/MM3 (1.8-7.7) Lymphocytes # (Auto) 1.1 TH/MM3 (1.0-4.8) Monocytes # (Auto) 1.8 TH/MM3 (0-0.9) Eosinophils # (Auto) 0.1 TH/MM3 (0-0.4) Basophils # (Auto) 0.0 TH/MM3 (0-0.2) CBC Comment DIFF FINAL Differential Comment Blood Urea Nitrogen 15 MG/DL (7-18) Creatinine 1.46 MG/DL (0.60-1.30) Random Glucose 99 MG/DL (74-106) Total Protein 7.1 GM/DL (6.4-8.2) Albumin 2.8 GM/DL (3.4-5.0) Calcium Level 8.6 MG/DL (8.5-10.1) Magnesium Level 2.2 MG/DL (1.5-2.5) Alkaline Phosphatase 77 U/L (45-117) Aspartate Amino Transf (AST/SGOT) 80 U/L (15-37) Alanine Aminotransferase (ALT/SGPT) 25 U/L (12-78) Total Bilirubin 1.7 MG/DL (0.2-1.0) Sodium Level 134 MEQ/L (136-145) Potassium Level 4.1 MEQ/L (3.5-5.1) Chloride Level 101 MEQ/L (98-107) Carbon Dioxide Level 26.9 MEQ/L (21.0-32.0) Anion Gap 6 MEQ/L (5-15) Estimat Glomerular Filtration Rate 51 ML/MIN (>89) Result Diagram: 11/16/1751811/16/17518 Telemetry: NSR (1) Renal insufficiency Plan: worsening indices, no diuresis monitor (2) NSTEMI (non-ST elevated myocardial infarction) (3) S/P CABG x 2 Plan: pain control/ IV meds dc ASA, statin , BB amiodarone chest tube removed without difficulty OOB ambulate pulm toileting CM to eval [facility] on discharge (4) Rheumatoid arthritis (5) Hypertensive urgency Plan: BP stable Aure Lee Nov 16, 2017 10:20
[2017-11-16] MEDS: ACETAMINOPHEN/HYDROcodone 325 MG/10 MG TAB PO PRN ×3 (12:54→21:04)
[2017-11-16] MEDS: SENNOSIDES 8.6 MG TAB PO SCH (21:00)
[2017-11-16] MEDS: ATORVASTATIN 40 MG TAB PO SCH (21:03)
[2017-11-16] MEDS: ZOLPIDEM TARTRATE 5 MG TAB PO PRN (21:03)
[2017-11-17] VITALS (28 sets, daily range): BP systolic 110–150; BP diastolic 68–84; PULSE 86–112; RESP 18–22; TEMP 97.5–99.5; O2SAT 91–96
[2017-11-17] MEDS: ACETAMINOPHEN/HYDROcodone 325 MG/10 MG TAB PO PRN ×6 (01:12→21:45)
[2017-11-17 05:32] LABS: HEMATOCRIT 26.2 % (39.0-51.0); MEAN CELL VOLUME 94.1 FL (80.0-100.0); MEAN CORPUSCULAR HEMOGLOBIN 32.3 PG (27.0-34.0); MEAN CORPUSCULAR HGB CONC 34.3 % (32.0-36.0); MEAN PLATELET VOLUME 7.5 FL (7.0-11.0); PLATELET COUNT 249 TH/MM3 (150-450); RED BLOOD COUNT 2.79 MIL/MM3 (4.50-5.90); RED CELL DISTRIBUTION WIDTH 13.4 % (11.6-17.2); WHITE BLOOD COUNT 10.3 TH/MM3 (4.0-11.0)
[2017-11-17] MEDS: PANTOPRAZOLE SOD 40 MG DELAYED RELEASE TAB PO SCH (06:00)
[2017-11-17 06:04] LABS: BICARBONATE 27.9 MEQ/L (21.0-32.0); CALCIUM 8.5 MG/DL (8.5-10.1); CREATININE 1.37 MG/DL (0.60-1.30)
--- NOTE | 2017-11-17 06:41 | RADRPT ---
EXAM DATE/TIME: 11/17/2017 05:56 [place] COMPARISON: CHEST SINGLE AP, November 15, 2017, 4:29. INDICATIONS : Shortness of breath, possible pulmonary disease. MEDICAL HISTORY : Hypertension. Rheumatoid arthritis. Carcinoma, testicular. SURGICAL HISTORY : Exploratory lap ENCOUNTER: Subsequent ACUITY: 4 - 6 days PAIN SCORE: Non-responsive. LOCATION: Bilateral chest FINDINGS: Single AP view of the chest. Chest tubes are no longer present.. Lung volumes are low. No significant interval change in left lung base opacity. No evidence of pneumothorax. CONCLUSION: Interval removal of chest tubes. No evidence of pneumothorax. Residual left lower lung parenchymal op acity indicating atelectasis versus consolidation. Shankar Son MD on November 17, 2017 at 6:37 Board Certified Radiologist. This report was verified electronically.
[2017-11-17] MEDS: RESP: ALBUTEROL 2.5 MG/IPRATROPIUM 0.5 MG NEB (SCH) NEB ×2 (07:14→12:40)
[2017-11-17] MEDS: INSULIN ASPART SUPPLEMENTAL SCALE SQ SCH ×4 (07:25→21:00)
--- NOTE | 2017-11-17 07:54 | HHI.PR ---
Subjective Remarks pt says he feels much better. ambulating and would like to go home today. Objective Vitals heart reg lung crackles base/left abd s/nt ext no edema Vital Signs Date Time Temp Pulse Resp B/P (MAP) Pulse Ox O2 Delivery O2 Flow Rate FiO2 11/17/17 07:14 Nasal Cannula 11/17/17 06:17 102 11/17/17 05:20 103 11/17/17 04:05 93 11/17/17 04:00 95 Nasal Cannula 2.00 11/17/17 04:00 98.4 95 21 125/75 (92) 95 11/17/17 03:20 89 11/17/17 02:40 95 11/17/17 01:41 94 11/16/17 23:30 94 11/16/17 23:30 98.4 94 19 127/69 (88) 95 11/16/17 23:30 95 Nasal Cannula 2.00 11/16/17 23:10 93 11/16/17 22:00 100 11/16/17 21:03 94 Nasal Cannula 2.00 11/16/17 21:00 98 11/16/17 20:00 102 11/16/17 19:20 98.7 109 21 128/82 (97) 83 11/16/17 19:20 92 Nasal Cannula 2.00 11/16/17 19:20 94 11/16/17 18:00 118 11/16/17 17:00 110 11/16/17 16:00 114 11/16/17 15:50 93 Nasal Cannula 2.00 11/16/17 15:50 99.1 101 22 117/84 (95) 93 11/16/17 15:00 102 11/16/17 14:27 93 Nasal Cannula 2.00 11/16/17 14:00 114 11/16/17 13:00 102 11/16/17 12:00 95 Nasal Cannula 2.00 11/16/17 12:00 92 11/16/17 12:00 99.0 95 20 108/62 (77) 94 11/16/17 11:00 90 11/16/17 10:14 93 Nasal Cannula 4.00 11/16/17 10:00 88 11/16/17 09:00 84 11/16/17 08:00 100 Result Diagram: 11/17/17 0515 11/17/17 0515 Imaging Last Impressions Chest X-Ray 11/12/17 1037 Signed Impressions: Service Date/Time: Sunday, November 12, 2017 11:14 - CONCLUSION: The lungs are clear. Edvin Lomeli MD Aorta CTA 11/12/17 0000 Signed Impressions: Service Date/Time: Sunday, November 12, 2017 11:26 - CONCLUSION: 1. No evidence of aortic dissection or aneurysmal dilation. 2. No pulmonary embolus identified. 3. Moderate atherosclerotic plaquing in the coronary arteries. 4. The solid organs of the abdomen are grossly intact. Caleb Montes MD A/P Problem List: (1) NSTEMI (non-ST elevated myocardial infarction) ICD Codes: I21.4 - Non-ST elevation (NSTEMI) myocardial infarction Status: Acute Plan: Chest pain NSTEMI 2d echo: 11/13: The left ventricular systolic function is normal with an estimated ejection fraction in the range of 60-65%. The right ventricle is mildly dilated. There is trace tricuspid valve regurgitation. LHC 11/13: Occluded LAD and RCA s/p CABG x 2 on 11/14 Pt with persistent hypoxia. working with RT this AM..walk test. d/c home when ok with CTS prn pain control. on po cont statin/bb/asa/plavix PT daily arrange hhc/pt Hypertensive Urgency BP 207/130 apon arrival cont ntg. bb. Chronic kidney disease stage III In review of outpatient records GFR ranged from 28- 63 monitor avoid nephrotoxic agents Rheumatoid Arthritis continue patient's home Enbrel (2) Hypertensive urgency ICD Codes: I16.0 - Hypertensive urgency Status: Acute (3) Rheumatoid arthritis ICD Codes: M06.9 - Rheumatoid arthritis, unspecified Status: Chronic Ethan Babb MD Nov 17, 2017 07:53
[2017-11-17] MEDS ORDERED: PLAV75TA29 PO (07:57)
[2017-11-17] MEDS ORDERED: HYDR-3583 PO (07:57)
[2017-11-17] MEDS ORDERED: ATOR40TA16 PO (07:57)
[2017-11-17] MEDS ORDERED: AMIO200T PO (07:57)
[2017-11-17] MEDS ORDERED: METO-309 PO (07:57)
[2017-11-17] MEDS ORDERED: ASPI81 PO (07:57)
[2017-11-17] MEDS: MAGNESIUM HYDROXIDE SUSP 30 ML CUP PO SCH (08:03)
[2017-11-17] MEDS: POLYETHYLENE GLYCOL 17 GM PKG PO SCH (08:03)
[2017-11-17] MEDS: MULTIVITAMINS/MINERALS THERAPEUTIC TAB PO SCH (08:04)
[2017-11-17] MEDS: CLOPIDOGREL 75 MG TAB PO SCH (08:04)
[2017-11-17] MEDS: METOPROLOL TARTRATE 50 MG TAB PO SCH ×2 (08:04→21:45)
[2017-11-17] MEDS: AMIODARONE 200 MG TAB PO SCH ×2 (08:05→21:00)
[2017-11-17] MEDS: DOCUSATE SODIUM 100 MG CAP PO SCH ×2 (08:05→21:00)
[2017-11-17] MEDS: ASPIRIN 81 MG CHEW TAB PO SCH (08:05)
[2017-11-17] MEDS: SODIUM CHLORIDE 0.9% FLUSH 10 ML FLUSH IV FLUSH SCH ×2 (08:05→21:00)
[2017-11-17] MEDS ORDERED: SOD PHOSPHATE/SOD BIPHOSPHATE (ADULT) ENEMA 133ML RECTAL PRN (09:00)
--- NOTE | 2017-11-17 10:25 | PD.CAR.PN ---
CVT Progress Note Subjective/Hospital Course: 52-year-old male who has been complaining of some chest pain off and on over the past 6 or 7 months with exertion. He gets it every few days. 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 The pain did not resolve. He proceeded to the emergency department. The patient has had apparently a significant family history with an uncle with coronary artery disease and some cousins that have had cardiac stents at an early age. He was ruled in for a non-STEMI. His troponins peaked at 26.9. He underwent cardiac catheterization by Dr. Flynn, which showed the proximal LAD 100%, the RCA 100%. EF tentatively per echo was approximately 60%. PAST MEDICAL HISTORY: Chronic kidney disease stage III, hypertension, and rheumatoid arthritis. He also had a testicular cancer in 1995 with chemo and radiation. He had an exploratory laparotomy with lysis of adhesions and then a bowel obstruction also in 2006, left orchiectomy with lymph node dissection in 1995. 11/14 pt continued to have chest pain despite NTG gtt heparin gtt started / ECG st depression lateral leads Dr Wade notified / pt now NPO for surgery today / CABG x 2 surgery : 11/14 1. Emergent Off-pump Coronary Artery Bypass Grafting x 2 with Left Internal Mammary Artery (FOSTER) to Left Anterior Descending (LAD), reverse saphenous vein graft to the distal Right Coronary Artery (RCA) 2. Left Leg Endoscopic Vein [place] extubated after surgery crystalloid 2600cc, cell saver 250cc, 200cc EBL 11/15 pt still very painful postop pain , wants "Dilaudid" po meds and breakthrough fentanly ordered OOB ambulate, leave chest tubes in on statin , BB , ASA , amiodarone 11/16 remains in NSR chest tube dc without difficulty IV pain meds dc , norco changed to 10 mg prn OOB, ambualte wean 02 as tolerated pulm toileting discussed with pt 11/17 Doing well Ambulate Gentle diuresis Wean Oxygen Objective: Vital Signs Date Time Temp Pulse Resp B/P (MAP) Pulse Ox O2 Delivery O2 Flow Rate FiO2 11/17/17 09:45 4.00 11/17/17 07:30 106 11/17/17 07:30 91 Nasal Cannula 2.00 11/17/17 07:30 98.9 106 20 150/84 (106) 91 11/17/17 07:14 Nasal Cannula 11/17/17 06:17 102 11/17/17 05:20 103 11/17/17 04:05 93 11/17/17 04:00 95 Nasal Cannula 2.00 11/17/17 04:00 98.4 95 21 125/75 (92) 95 11/17/17 03:20 89 11/17/17 02:40 95 11/17/17 01:41 94 11/16/17 23:30 94 11/16/17 23:30 98.4 94 19 127/69 (88) 95 11/16/17 23:30 95 Nasal Cannula 2.00 11/16/17 23:10 93 11/16/17 22:00 100 11/16/17 21:03 94 Nasal Cannula 2.00 11/16/17 21:00 98 11/16/17 20:00 102 11/16/17 19:20 98.7 109 21 128/82 (97) 83 11/16/17 19:20 92 Nasal Cannula 2.00 11/16/17 19:20 94 11/16/17 18:00 118 11/16/17 17:00 110 11/16/17 16:00 114 11/16/17 15:50 93 Nasal Cannula 2.00 11/16/17 15:50 99.1 101 22 117/84 (95) 93 11/16/17 15:00 102 11/16/17 14:27 93 Nasal Cannula 2.00 11/16/17 14:00 114 11/16/17 13:00 102 11/16/17 12:00 95 Nasal Cannula 2.00 11/16/17 12:00 92 11/16/17 12:00 99.0 95 20 108/62 (77) 94 11/16/17 11:00 90 Labs: Laboratory Tests Test 11/17/17 05:15 White Blood Count 10.3 TH/MM3 (4.0-11.0) Red Blood Count 2.79 MIL/MM3 (4.50-5.90) Hemoglobin 9.0 GM/DL (13.0-17.0) Hematocrit 26.2 % (39.0-51.0) Mean Corpuscular Volume 94.1 FL (80.0-100.0) Mean Corpuscular Hemoglobin 32.3 PG (27.0-34.0) Mean Corpuscular Hemoglobin Concent 34.3 % (32.0-36.0) Red Cell Distribution Width 13.4 % (11.6-17.2) Platelet Count 249 TH/MM3 (150-450) Mean Platelet Volume 7.5 FL (7.0-11.0) Blood Urea Nitrogen 18 MG/DL (7-18) Creatinine 1.37 MG/DL (0.60-1.30) Random Glucose 95 MG/DL (74-106) Calcium Level 8.5 MG/DL (8.5-10.1) Sodium Level 136 MEQ/L (136-145) Potassium Level 3.9 MEQ/L (3.5-5.1) Chloride Level 100 MEQ/L (98-107) Carbon Dioxide Level 27.9 MEQ/L (21.0-32.0) Anion Gap 8 MEQ/L (5-15) Estimat Glomerular Filtration Rate 55 ML/MIN (>89) Result Diagram: 11/17/17 0515 11/17/17 0515 (1) Renal insufficiency Plan: worsening indices, no diuresis monitor (2) NSTEMI (non-ST elevated myocardial infarction) (3) S/P CABG x 2 Plan: pain control/ IV meds dc ASA, statin , BB amiodarone chest tube removed without difficulty OOB ambulate pulm toileting CM to eval [facility] on discharge (4) Rheumatoid arthritis (5) Hypertensive urgency Plan: BP stable Marie Wade MD Nov 17, 2017 10:25
[2017-11-17] MEDS ORDERED: FUROSEMIDE 40 MG/4 ML VIAL IV PUSH ONE (11:00)
[2017-11-17] MEDS ORDERED: POTASSIUM CHLORIDE 20 MEQ CONTROLLED RELEASE TAB PO ONE (11:15)
[2017-11-17] MEDS: SENNOSIDES 8.6 MG TAB PO SCH (21:00)
[2017-11-17] MEDS: ATORVASTATIN 40 MG TAB PO SCH (21:45)
[2017-11-17] MEDS: ZOLPIDEM TARTRATE 5 MG TAB PO PRN (21:50)
[2017-11-18] VITALS (13 sets, daily range): BP systolic 120–123; BP diastolic 90–92; PULSE 84–146; RESP 18–20; TEMP 98.3–99.1; O2SAT 94–95
[2017-11-18] MEDS: ACETAMINOPHEN/HYDROcodone 325 MG/10 MG TAB PO PRN ×3 (03:05→12:25)
[2017-11-18] MEDS: PANTOPRAZOLE SOD 40 MG DELAYED RELEASE TAB PO SCH (05:44)
--- NOTE | 2017-11-18 07:51 | PD.CAR.PN ---
CVT Progress Note Subjective/Hospital Course: 52-year-old male who has been complaining of some chest pain off and on over the past 6 or 7 months with exertion. He gets it every few days. 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 The pain did not resolve. He proceeded to the emergency department. The patient has had apparently a significant family history with an uncle with coronary artery disease and some cousins that have had cardiac stents at an early age. He was ruled in for a non-STEMI. His troponins peaked at 26.9. He underwent cardiac catheterization by Dr. Flynn, which showed the proximal LAD 100%, the RCA 100%. EF tentatively per echo was approximately 60%. PAST MEDICAL HISTORY: Chronic kidney disease stage III, hypertension, and rheumatoid arthritis. He also had a testicular cancer in 1995 with chemo and radiation. He had an exploratory laparotomy with lysis of adhesions and then a bowel obstruction also in 2006, left orchiectomy with lymph node dissection in 1995. 11/14 pt continued to have chest pain despite NTG gtt heparin gtt started / ECG st depression lateral leads Dr Wade notified / pt now NPO for surgery today / CABG x 2 surgery : 11/14 1. Emergent Off-pump Coronary Artery Bypass Grafting x 2 with Left Internal Mammary Artery (FOSTER) to Left Anterior Descending (LAD), reverse saphenous vein graft to the distal Right Coronary Artery (RCA) 2. Left Leg Endoscopic Vein [place] extubated after surgery crystalloid 2600cc, cell saver 250cc, 200cc EBL 11/15 pt still very painful postop pain , wants "Dilaudid" po meds and breakthrough fentanly ordered OOB ambulate, leave chest tubes in on statin , BB , ASA , amiodarone 11/16 remains in NSR chest tube dc without difficulty IV pain meds dc , norco changed to 10 mg prn OOB, ambualte wean 02 as tolerated pulm toileting discussed with pt 11/17 Doing well Ambulate Gentle diuresis Wean Oxygen 11/18 Doing well OK to D/C from my standpoint Objective: Vital Signs Date Time Temp Pulse Resp B/P (MAP) Pulse Ox O2 Delivery O2 Flow Rate FiO2 11/18/17 06:00 84 11/18/17 05:00 88 11/18/17 04:05 18 11/18/17 04:00 90 11/18/17 03:00 101 11/18/17 03:00 99.1 101 18 123/92 (102) 94 11/18/17 03:00 94 Nasal Cannula 2.00 11/18/17 02:00 84 11/18/17 01:00 84 11/18/17 00:00 84 11/17/17 23:00 92 Room Air 11/17/17 23:00 86 11/17/17 23:00 99.4 86 18 110/68 (82) 92 11/17/17 22:00 104 11/17/17 21:00 110 11/17/17 20:00 102 11/17/17 19:05 96 Nasal Cannula 3.00 11/17/17 19:00 99.5 91 20 119/83 (95) 94 11/17/17 19:00 94 Nasal Cannula 2.00 11/17/17 19:00 91 11/17/17 18:00 101 11/17/17 17:00 102 11/17/17 16:00 108 11/17/17 15:30 95 Nasal Cannula 2.00 11/17/17 15:30 98.0 112 18 116/83 (94) 95 11/17/17 15:00 112 11/17/17 14:00 100 11/17/17 13:00 112 11/17/17 12:00 100 11/17/17 11:15 92 Nasal Cannula 2.00 11/17/17 11:15 97.5 100 22 117/68 (84) 92 11/17/17 11:00 90 11/17/17 10:00 102 11/17/17 09:45 4.00 11/17/17 09:00 110 11/17/17 08:00 110 Result Diagram: 11/17/17 0515 11/17/17 0515 (1) Renal insufficiency Plan: worsening indices, no diuresis monitor (2) NSTEMI (non-ST elevated myocardial infarction) (3) S/P CABG x 2 Plan: pain control/ IV meds dc ASA, statin , BB amiodarone chest tube removed without difficulty OOB ambulate pulm toileting CM to eval [facility] on discharge (4) Rheumatoid arthritis (5) Hypertensive urgency Plan: BP stable Marie Wade MD Nov 18, 2017 07:51
[2017-11-18] MEDS: INSULIN ASPART SUPPLEMENTAL SCALE SQ SCH (08:12)
[2017-11-18] MEDS: MULTIVITAMINS/MINERALS THERAPEUTIC TAB PO SCH (08:16)
[2017-11-18] MEDS: AMIODARONE 200 MG TAB PO SCH (08:16)
[2017-11-18] MEDS: METOPROLOL TARTRATE 50 MG TAB PO SCH (08:16)
[2017-11-18] MEDS: DOCUSATE SODIUM 100 MG CAP PO SCH (08:16)
[2017-11-18] MEDS: CLOPIDOGREL 75 MG TAB PO SCH (08:17)
[2017-11-18] MEDS: POLYETHYLENE GLYCOL 17 GM PKG PO SCH (08:18)
[2017-11-18] MEDS: MAGNESIUM HYDROXIDE SUSP 30 ML CUP PO SCH (08:18)
[2017-11-18] MEDS: ASPIRIN 81 MG CHEW TAB PO SCH (08:18)
[2017-11-18] MEDS: SODIUM CHLORIDE 0.9% FLUSH 10 ML FLUSH IV FLUSH SCH (08:18)
--- NOTE | 2017-11-18 09:22 | HHI.DCPOC ---
Discharge Care Plan Diagnosis: (1) NSTEMI (non-ST elevated myocardial infarction) Goals to Promote Your Health * To prevent worsening of your condition and complications * To maintain your health at the optimal level Directions to Meet Your Goals Take your medications as prescribed Follow your dietary instruction Follow activity as directed Keep your appointments as scheduled Take your immunizations and boosters as scheduled If your symptoms worsen call your PCP, if no PCP go to Urgent Care Center or Emergency Room Smoking is Dangerous to Your Health. Avoid second hand smoke Call the 24-hour hour crisis hotline for domestic abuse at Ethan Babb MD Nov 18, 2017 09:22
--- NOTE | 2017-11-18 09:23 | HHI.PR ---
Subjective Remarks pt feels better. tachy this AM felt better after iv lasix Objective Vitals heart reg lung diminished left base abd s/nt ext no pitting. Vital Signs Date Time Temp Pulse Resp B/P (MAP) Pulse Ox O2 Delivery O2 Flow Rate FiO2 11/18/17 06:00 84 11/18/17 05:00 88 11/18/17 04:05 18 11/18/17 04:00 90 11/18/17 03:00 101 11/18/17 03:00 99.1 101 18 123/92 (102) 94 11/18/17 03:00 94 Nasal Cannula 2.00 11/18/17 02:00 84 11/18/17 01:00 84 11/18/17 00:00 84 11/17/17 23:00 92 Room Air 11/17/17 23:00 86 11/17/17 23:00 99.4 86 18 110/68 (82) 92 11/17/17 22:00 104 11/17/17 21:00 110 11/17/17 20:00 102 11/17/17 19:05 96 Nasal Cannula 3.00 11/17/17 19:00 99.5 91 20 119/83 (95) 94 11/17/17 19:00 94 Nasal Cannula 2.00 11/17/17 19:00 91 11/17/17 18:00 101 11/17/17 17:00 102 11/17/17 16:00 108 11/17/17 15:30 95 Nasal Cannula 2.00 11/17/17 15:30 98.0 112 18 116/83 (94) 95 11/17/17 15:00 112 11/17/17 14:00 100 11/17/17 13:00 112 11/17/17 12:00 100 11/17/17 11:15 92 Nasal Cannula 2.00 11/17/17 11:15 97.5 100 22 117/68 (84) 92 11/17/17 11:00 90 11/17/17 10:00 102 11/17/17 09:45 4.00 Result Diagram: 11/17/17 0515 11/17/17 0515 Imaging Last Impressions Chest X-Ray 11/12/17 1037 Signed Impressions: Service Date/Time: Sunday, November 12, 2017 11:14 - CONCLUSION: The lungs are clear. Edvin Lomeli MD Aorta CTA 11/12/17 0000 Signed Impressions: Service Date/Time: Sunday, November 12, 2017 11:26 - CONCLUSION: 1. No evidence of aortic dissection or aneurysmal dilation. 2. No pulmonary embolus identified. 3. Moderate atherosclerotic plaquing in the coronary arteries. 4. The solid organs of the abdomen are grossly intact. Caleb Montes MD A/P Problem List: (1) NSTEMI (non-ST elevated myocardial infarction) ICD Codes: I21.4 - Non-ST elevation (NSTEMI) myocardial infarction Status: Acute Plan: Chest pain NSTEMI 2d echo: 11/13: The left ventricular systolic function is normal with an estimated ejection fraction in the range of 60-65%. The right ventricle is mildly dilated. There is trace tricuspid valve regurgitation. LHC 11/13: Occluded LAD and RCA s/p CABG x 2 on 11/14 pt was persistently hypoxic yesterday and failed walk test. feels better after iv lasix recheck o2 sats today and decide on home o2. also tachy this AM...reevaluate later today for d/c prn pain control. on po cont statin/bb/asa/plavix PT daily arrange hhc/pt Hypertensive Urgency BP 207/130 apon arrival cont ntg. bb. Chronic kidney disease stage III In review of outpatient records GFR ranged from 28- 63 monitor avoid nephrotoxic agents Rheumatoid Arthritis continue patient's home Enbrel (2) Hypertensive urgency ICD Codes: I16.0 - Hypertensive urgency Status: Acute (3) Rheumatoid arthritis ICD Codes: M06.9 - Rheumatoid arthritis, unspecified Status: Chronic Ethan Babb MD Nov 18, 2017 09:23
--- NOTE | 2017-11-18 11:32 | HHI.DS ---
Discharge Summary Admission Date Nov 12, 2017 at 11:57 Discharge Date: Nov 18, 2017 Admitting Diagnosis NSTEMI. Hypertensive crisis. Renal insufficiency. (1) NSTEMI (non-ST elevated myocardial infarction) Diagnosis: Principal ICD Codes: I21.4 - Non-ST elevation (NSTEMI) myocardial infarction Status: Acute (2) Hypertensive urgency Diagnosis: Secondary ICD Codes: I16.0 - Hypertensive urgency Status: Acute (3) Rheumatoid arthritis Diagnosis: Secondary ICD Codes: M06.9 - Rheumatoid arthritis, unspecified Status: Chronic Brief History This 52-year-old male patient with past medical history which includes chronic kidney disease stage III, hypertension, RA and testicular cancer s/o left orchectomy lymph node dissection and chemo therapy. Patient presented to the [facility] emergency room [place] due to chest pain. Patient reports he was at work today at the water [employer] when he began to have severe mild sternal chest pain with radiation down right arm. 10/10 in severity. Chest pain associated with diaphoresis, shortness of breath. Patient denies N/V. Patient also reports that over the past month he has been having similar chest pain with exertion such as going up a flight of stairs which last for 1-2 mins then resolves with rest. Patient reports the pain today did not resolve therefore he proceeded to the ER. Initially the pain improved with Nitro drip but is returning at this point. Chest pain is not effected by food. Patient has and uncle with CAD and a few cousins that had cardiac stents in there 30's. Patient denies any recent extended travel, fevers or chills. Patient is not diabetic and is a life long non-smoker. CBC/BMP: 11/17/17 0515 11/17/17 0515 Significant Findings Laboratory Tests Test 11/16/17 05:19 11/17/17 05:15 White Blood Count 13.5 TH/MM3 (4.0-11.0) Red Blood Count 2.91 MIL/MM3 (4.50-5.90) 2.79 MIL/MM3 (4.50-5.90) Hemoglobin 9.3 GM/DL (13.0-17.0) 9.0 GM/DL (13.0-17.0) Hematocrit 27.5 % (39.0-51.0) 26.2 % (39.0-51.0) Neutrophils (%) (Auto) 78.2 % (16.0-70.0) Lymphocytes (%) (Auto) 8.0 % (9.0-44.0) Monocytes (%) (Auto) 13.0 % (0.0-8.0) Neutrophils # (Auto) 10.6 TH/MM3 (1.8-7.7) Monocytes # (Auto) 1.8 TH/MM3 (0-0.9) Creatinine 1.46 MG/DL (0.60-1.30) 1.37 MG/DL (0.60-1.30) Albumin 2.8 GM/DL (3.4-5.0) Aspartate Amino Transf (AST/SGOT) 80 U/L (15-37) Total Bilirubin 1.7 MG/DL (0.2-1.0) Sodium Level 134 MEQ/L (136-145) Estimat Glomerular Filtration Rate 51 ML/MIN (>89) 55 ML/MIN (>89) Hospital Course (1) NSTEMI (non-ST elevated myocardial infarction) Chest pain NSTEMI 2d echo: 11/13: The left ventricular systolic function is normal with an estimated ejection fraction in the range of 60-65%. The right ventricle is mildly dilated. There is trace tricuspid valve regurgitation. LHC 11/13: Occluded LAD and RCA s/p CABG x 2 on 11/14 pt was persistently hypoxic and failed walk test. feels better after iv lasix recheck o2 sats today show pt no longer requires home o2. Had some transient afib/rvr this AM but converted to nsr. prn pain control. on po cont statin/bb/asa/plavix cont amio for 2 weeks. arrange hhc/pt Hypertensive Urgency BP 207/130 apon arrival cont ntg. bb. Chronic kidney disease stage III In review of outpatient records GFR ranged from 28- 63 monitor avoid nephrotoxic agents Rheumatoid Arthritis continue patient's home Enbrel Pt Condition on Discharge: Stable Discharge Disposition: Disch w/ Home Health Serv Discharge Instructions DIET: Follow Instructions for: Heart Healthy Diet Activities you can perform: See Additionl Instruction Other Activity Instructions: cabg post op precautions per Dr Wade instruction. Follow up Referrals: Cardiology - 4 Weeks with Golden Flynn MD PCP Follow-up - 2 Weeks with Rodriguez,William A D.o. Surgical - 2 Weeks with Aure Lee New Medications: Amiodarone (Amiodarone) 200 Mg Tab 200 MG PO Q12HR for cad for 14 Days, TAB Aspirin (Tgt Aspirin) 81 Mg Chw 81 MG PO DAILY for cad, #180 EA Atorvastatin (Atorvastatin) 40 Mg Tab 40 MG PO HS for cad, #30 TAB Clopidogrel (Plavix) 75 Mg Tab 75 MG PO DAILY for cad, #30 TAB 3 Refills Hydrocodone/Acetaminophen (Hydrocodone-Acetamin 10-325 mg) 10 Mg-325 Mg Tablet 1 TAB PO Q4H PRN for pain, #30 TAB Metoprolol Tartrate (Lopressor) 50 Mg Tab 50 MG PO BID for cad, #60 TAB Continued Medications: Etanercept PF Inj (Enbrel PF Inj) 50 mg/ml Syr 50 MG SQ Q7D, #4 SYRINGE 0 Refills Discontinued Medications: Enalapril (Enalapril) 20 Mg Tab 20 MG PO DAILY, #30 TAB 0 Refills Metoprolol Tartrate (Metoprolol Tartrate) 100 Mg Tab 100 MG PO DAILY, #30 TAB 0 Refills Ethan Babb MD Nov 18, 2017 11:32
--- NOTE | 2017-11-19 09:51 | RSPPFT ---
DATE OF PROCEDURE: 11/14/17 COMMENTS: Spirometry with FVC of 2.0, FEV1 of 1.5, FEV1/FVC ratio at 75% of predicted. Post-bronchodilator study was not performed. IMPRESSION: 1. Decreased flow rates. 2. No gross obstruction. 3. Possible restriction. 4. If clinically warranted, lung volumes may be helpful.
--- NOTE | 2017-11-19 15:57 | EKG ---
Date Performed: 11/18/2017 Time Performed: 08:43:16 PTAGE: 52 years EKG: Atrial flutter with 2:1 heart block Right axis deviation Inferior infarct - age undetermine d Compared to previous tracing, patient is now in atrial flutter with 2:1 heart block Abnormal ECG PREVIOUS TRACING : 11/15/2017 05.22 DOCTOR: Frankie Modi Interpretating Date/Time 11/19/2017 15:56:20
== END 2017-11-18 12:55 | disposition home health service (06) | DRG 234 ==
LOC: PHED 10:23 → PHEDA 11:57 → HCIS 15:37 → HCPC 11-14 02:10 → HCIS 11-14 12:38 → HCPC 11-14 13:44 → HCVI 11-14 16:45 → HCPC 11-15 09:50
PROVIDERS: ADMIT Hospitalist; ATTEND Hospitalist
PROC: B2111ZZ Fluoroscopy of Multiple Coronary Arteries using Low Osmolar Contrast (ICD-10-PCS; 2017-11-13)
PROC: 4A023N7 Measurement of Cardiac Sampling and Pressure, Left Heart, Percutaneous Approach (ICD-10-PCS; principal; 2017-11-13 11:00)
PROC: 021009W Bypass Coronary Artery, One Artery from Aorta with Autologous Venous Tissue, Open Approach (ICD-10-PCS; 2017-11-14)
PROC: 06BQ4ZZ Excision of Left Saphenous Vein, Percutaneous Endoscopic Approach (ICD-10-PCS; 2017-11-14)
PROC: 02100Z9 Bypass Coronary Artery, One Artery from Left Internal Mammary, Open Approach (ICD-10-PCS; 2017-11-14 12:37)
DX: I21.4 Non-ST elevation (NSTEMI) myocardial infarction (principal); I47.2 Ventricular tachycardia; I07.1 Rheumatic tricuspid insufficiency; I48.91 Unspecified atrial fibrillation; N18.3 Chronic kidney disease, stage 3 (moderate); I25.10 Atherosclerotic heart disease of native coronary artery without angina pectoris; I12.9 Hypertensive chronic kidney disease with stage 1 through stage 4 chronic kidney disease, or unspecified chronic kidney disease; M06.9 Rheumatoid arthritis, unspecified; I16.0 Hypertensive urgency; Z85.47 Personal history of malignant neoplasm of testis; Z92.21 Personal history of antineoplastic chemotherapy; Z82.49 Family history of ischemic heart disease and other diseases of the circulatory system; Z92.3 Personal history of irradiation; R09.02 Hypoxemia
CPT/HCPCS: 71045; 71275; 74174; 76937; 80048; 80053; 80061; 80307; 81001; 82550; 82948; 83036; 83735; 84484; 85002; 85025; 85027; 85610; 85730; 86850; 86900; 86901; 86920; 87040; 87641; 92920; 93005; 93306; 93454; 93880; 93970; 93998; 94002; 94010; 94150; 94618; 94640; 94664; 94667; 94668; 96361; 96374; 96375; C1768; C1769; C1887; C1893; J0131; J0330; J0690; J1170; J1644; J1815; J1817; J1940; J2250; J2270; J2370; J2405; J2440; J2720; J3010; J3370; J3475; J3480; J7030; Q9967